=== PATIENT | female | born 1990 | race Caucasian/White ===

== ENCOUNTER 2017-08-01 05:06 | Inpatient (IN) | payer BC ==
[~2017-08-01 05:06] MED LIST: Lidocaine 1%/Sod Bicarbonate in NS 8.4% 1 ML Syringe IV PRN; Sodium Chloride 0.9% 10 ML Syringe FLUSH PRN
[2017-08-01] MEDS ORDERED: Citric Acid/Sodium Citrate Solution 30 ML Cup PO ONE (05:35)
[2017-08-01] MEDS ORDERED: ceFAZolin 2 GM in Premix Bag 1 BAG IV ONE (05:35)
[2017-08-01] MEDS ORDERED: Metoclopramide 10 MG/2 ML SDV IVPUSH ONE (05:35)
[2017-08-01] MEDS ORDERED: Oxytocin/Lactated Ringers 10 UNIT/1,000 ML BAG IV SCH (05:45)
[2017-08-01] MEDS: Lactated Ringers 1,000 ML IV SCH ×2 (06:16→06:17)
--- NOTE | 2017-08-01 06:36 | PCM.OPNOTE ---
- General Post-Op/Procedure Note Date of Surgery/Procedure: 08/01/17 Operative Procedure(s): Primary Low Transverse Findings: Normal appearance of the fallopian tubes, and ovaries. Slight arcuate appearance of the top of the uterus although cavity felt normal. Baby boy in breech presentation. Apgars of 8 & 9 and weight of 7 lbs 8 oz Pre Op Diagnosis: 39 weeks gestation. Breech presentation. Amniotic shelf Post-Op Diagnosis: Same Anesthesia Technique: Spinal Primary Surgeon: La Sepulveda Secondary Surgeon: Shelley London Anesthesia Provider: Cullen Gerber Pathology: Cord blood collected. Placenta discarded. Fluid Replacement, Intraop: 2,400 Output, Urine Amount: 75 EBL in mLs: 400 Complications: None Condition: Good Free Text/Narrative:: The risks, benefits, indications, potential complications, and alternatives were explained to the patient and informed consent obtained. After induction of anesthesia, the patient was placed in a supine position and then draped and prepped in the usual sterile manner. A Pfannenstiel incision was made and carried down through the subcutaneous tissue to the fascia. Fascial incision was made and extended transversely. The fascia was from the underlying rectus tissue superiorly and inferiorly. The peritoneum was identified and entered. Peritoneal incision was extended longitudinally. The utero-vesical peritoneal reflection was incised transversely and the bladder flap was bluntly freed from the lower uterine segment. A low transverse uterine incision was made sharply with a scalpel and extended bluntly in a cephalocaudad direction. A baby boy was delivered from a breech presentation with APGARS as above. After the umbilical cord was clamped and cut cord blood was obtained for evaluation. The placenta was removed intact and appeared normal. The uterus was exteriorized and cleared of clots. The uterine outline, tubes and ovaries appeared normal. The uterine incision was closed with running locked sutures of 0 Vicryl. Hemostasis was obtained with a second imbricating layer of 0 vicryl. The uterus was then placed back into the abdomen. The infracolic gutters were cleared of blood clots. The fascia was then reapproximated with running sutures of 0 Vicryl. The sucutaneous tissue was irrigated with sterile warm normal saline, hemostasis obtained with cautery. This layer was also closed with a running 0 vicryl. The skin was reapproximated with running Subcuticular 4-0 monocryl sutures. Instrument, sponge, and needle counts were correct prior the abdominal closure and at the conclusion of the case.
[2017-08-01] MEDS ORDERED: Ondansetron 4 MG/2 ML SDV ONE (06:49)
[2017-08-01] MEDS ORDERED: Ketorolac 30 MG/ML SDV ONE (06:49)
[2017-08-01] MEDS ORDERED: Oxytocin 10 Units/1 ML SDV ONE (06:49)
[2017-08-01] MEDS ORDERED: Morphine PF 10 MG/10 ML SDV ONE (06:55)
--- NOTE | 2017-08-01 07:08 | PCM.PREANE ---
Preanesthetic Assessment - Anesthesia/Transfusion/Family Hx Anesthesia History: Prior Anesthesia Without Reaction Family History of Anesthesia Reaction: No Transfusion History: No Prior Transfusion(s) Intubation History: Unknown - Review of Systems General: No Symptoms Pulmonary: No Symptoms Cardiovascular: No Symptoms Gastrointestinal: No Symptoms Neurological: No Symptoms Other: Reports: None - Physical Assessment NPO Status Date: 08/01/17 NPO Status Time: 00:00 Pulse: 70 O2 Sat by Pulse Oximetry: 98 Respiratory Rate: 16 Blood Pressure: 129/80 Temperature: 98.1 F Vital Signs: Last Vital Signs Temp 98.1 F 08/01/17 05:43 Pulse 70 08/01/17 05:43 Resp 16 08/01/17 05:43 BP 129/80 08/01/17 05:43 Pulse Ox 98 08/01/17 05:43 Height: 1.73 m Weight: 81.647 kg ASA Class: 2 Mental Status: Alert & Oriented x3 Airway Class: Mallampati = 2 Dentition: Reports: Normal Dentition Thyro-Mental Finger Breadths: 3 Mouth Opening Finger Breadths: 3 ROM/Head Extension: Full Lungs: Clear to Auscultation, Normal Respiratory Effort Cardiovascular: Regular Rate, Regular Rhythm - Lab Values: Laboratory Last Values WBC 6.37 K/mm3 (3.98-10.04) 08/01/17 05:55 RBC 3.26 M/mm3 (3.98-5.22) L 08/01/17 05:55 Hgb 10.0 gm/L (11.2-15.7) L 08/01/17 05:55 Hct 29.8 % (34.1-44.9) L 08/01/17 05:55 MCV 91.4 fl (79.4-94.8) 08/01/17 05:55 MCH 30.7 pg (25.6-32.2) 08/01/17 05:55 MCHC 33.6 g/dl (32.2-35.5) 08/01/17 05:55 RDW Std Deviation 39.5 fL (36.4-46.3) 08/01/17 05:55 Plt Count 270 K/mm3 (182-369) 08/01/17 05:55 MPV 9.3 fl (9.4-12.3) L 08/01/17 05:55 Blood Type A POSITIVE 08/01/17 05:55 Gel Antibody Screen Negative 08/01/17 05:55 - Allergies Allergies/Adverse Reactions: Allergies Allergy/AdvReac Type Severity Reaction Status Date / Time latex Allergy Mild skin Verified 08/01/17 05:53 irritation - Blood Blood Available: Yes Product(s) Available: PRBC - Anesthesia Plan Pre-Op Medication Ordered: None - Acknowledgements Anesthesia Type Planned: Spinal Pt an Appropriate Candidate for the Planned Anesthesia: Yes Alternatives and Risks of Anesthesia Discussed w Pt/Guardian: Yes Pt/Guardian Understands and Agrees with Anesthesia Plan: Yes 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 USE Smoking Status *Q: Never Smoker Second Hand Smoke Exposure: No Recreational Drug Use History: No - CURRENT (IN HOUSE) MEDS Current Meds: Current Medications Lactated Ringer's (Ringers, Lactated) 1,000 mls @ 125 mls/hr IV ASDIRECTED [facility] Last Admin: 08/01/17 06:17 Dose: 999 mls/hr Oxytocin/Lactated Ringer's (Pitocin In Lr 10 Units/1,000 Ml) 10 unit in 1,000 mls @ 100 mls/hr IV ASDIRECTED [facility] Lidocaine/Sodium Bicarbonate (Buffered Lidocaine 1% In Ns 8.4%) 0.25 ml IV ONETIME PRN PRN Reason: Prior to IV Start Sodium Chloride (Saline Flush) 10 ml FLUSH ASDIRECTED PRN PRN Reason: Keep Vein Open Discontinued Medications Citric Acid/Sodium Citrate (Bicitra Solution) 30 ml PO ONETIME ONE Stop: 08/01/17 05:36 Last Admin: 08/01/17 06:57 Dose: 30 ml Cefazolin Sodium/Dextrose 2 gm (/ Premix) 50 mls @ 100 mls/hr IV ONETIME ONE Stop: 08/01/17 06:04 Ketorolac Tromethamine (Toradol) Confirm Administered Dose 30 mg .ROUTE .STK- MED ONE Stop: 08/01/17 06:50 Metoclopramide HCl (Reglan) 10 mg IVPUSH ONETIME ONE Stop: 08/01/17 05:36 Last Admin: 08/01/17 06:57 Dose: 10 mg Morphine Sulfate (Duramorph Pf) Confirm Administered Dose 10 mg .ROUTE .STK-MED ONE Stop: 10/19/17 06:56 Ondansetron HCl (Zofran) Confirm Administered Dose 4 mg .ROUTE .STK-MED ONE Stop: 08/01/17 06:50 Oxytocin (Pitocin) Confirm Administered Dose 20 unit .ROUTE .STK-MED ONE Stop: 08/01/17 06:50
[2017-08-01] MEDS ORDERED: Phenylephrine 1% 10 MG/ML SDV ONE (07:31)
[2017-08-01] MEDS ORDERED: Lactated Ringers 1,000 ML ONE ×2 (07:53→08:01)
[2017-08-01] MEDS ORDERED: fentaNYL 100 MCG/2 ML SDV IVPUSH PRN (08:29)
[2017-08-01] MEDS ORDERED: Meperidine PF 50 MG/ML Syringe IVPUSH PRN (08:29)
[2017-08-01] MEDS ORDERED: ePHEDrine 50 MG/ML SDV IVPUSH PRN (08:29)
[2017-08-01] MEDS ORDERED: Ondansetron 4 MG/2 ML SDV IVPUSH PRN (08:29)
--- NOTE | 2017-08-01 08:33 | PCM.POSTAN ---
POST ANESTHESIA ASSESSMENT - MENTAL STATUS Mental Status: Alert, Oriented - VITAL SIGNS Pulse Rate: 72 SaO2: 97 Resp Rate: 21 Blood Pressure: 120/64 Temperature: 98 F - RESPIRATORY Respiratory Status: Respiratory Rate WNL, Airway Patent, O2 Saturation Stable - CARDIOVASCULAR CV Status: Pulse Rate WNL, Blood Pressure Stable - GASTROINTESTINAL GI Status: No Symptoms - PAIN Pain Score: 0 - POST OP HYDRATION Hydration Status: Adequate & Stable
[2017-08-01] MEDS ORDERED: Ondansetron 4 MG/2 ML SDV IV PRN (09:58)
[2017-08-01] MEDS ORDERED: diphenhydrAMINE 50 MG/ML SDV IVPUSH PRN (09:58)
[2017-08-01] MEDS ORDERED: Lanolin 100% Cream 7 GM Tube TOP PRN (09:58)
[2017-08-01] MEDS ORDERED: Docusate Sodium 100 MG Cap PO PRN (09:58)
[2017-08-01] MEDS ORDERED: Dextrose 5%-Lactated Ringers 1,000 ML IV SCH (09:58)
[2017-08-01] MEDS ORDERED: Ibuprofen 600 MG Tab PO PRN (09:58)
[2017-08-01] MEDS: diphenhydrAMINE 50 MG/ML SDV IVPUSH PRN ×2 (11:19→18:30)
[2017-08-01] MEDS: Ketorolac 30 MG/ML SDV IVPUSH SCH ×2 (15:28→20:58)
[2017-08-02] MEDS: Ketorolac 30 MG/ML SDV IVPUSH SCH (02:36)
--- NOTE | 2017-08-02 08:53 | PCM.PNPP ---
- General Info Date of Service: 08/02/17 Functional Status: Reports: Pain Controlled - Review of Systems General: Reports: No Symptoms HEENT: Reports: No Symptoms Pulmonary: Reports: No Symptoms Cardiovascular: Reports: No Symptoms Gastrointestinal: Reports: No Symptoms Genitourinary: Reports: No Symptoms Musculoskeletal: Reports: No Symptoms Skin: Reports: No Symptoms Neurological: Reports: No Symptoms Psychiatric: Reports: No Symptoms - General Info Date of Service: 08/02/17 - Patient Data Vital Signs - Most Recent: Last Vital Signs Temp 36.7 C 08/02/17 02:37 Pulse 74 08/02/17 02:37 Resp 16 08/02/17 06:53 BP 117/62 08/02/17 02:37 Pulse Ox 98 08/02/17 06:53 Weight - Most Recent: 81.647 kg I&O - Last 24 Hours: Intake & Output 08/01/17 08/02/17 08/02/17 22:59 06:59 14:59 Intake Total 2000 Output Total 950 2000 Balance 1050 -2000 Lab Results - Last 24 Hours: Laboratory Results - last 24 hr 08/02/17 Range/Units 06:40 WBC 8.18 (3.98-10.04) K/mm3 RBC 3.27 L (3.98-5.22) M/mm3 Hgb 10.1 L (11.2-15.7) gm/L Hct 29.9 L (34.1-44.9) % MCV 91.4 (79.4-94.8) fl MCH 30.9 (25.6-32.2) pg MCHC 33.8 (32.2-35.5) g/dl RDW Std Deviation 40.1 (36.4-46.3) fL Plt Count 215 (182-369) K/mm3 MPV 9.5 (9.4-12.3) fl Med Orders - Current: Current Medications Diphenhydramine HCl (Benadryl) 25 mg IVPUSH Q6H PRN PRN Reason: pruritis Last Admin: 08/01/17 18:30 Dose: 25 mg Diphenhydramine HCl (Benadryl) 25 mg IVPUSH Q6H PRN PRN Reason: Itching or Nausea Docusate Sodium (Colace) 100 mg PO Q12H PRN PRN Reason: Constipation Emollient Ointment (Lansinoh Hpa) 0 gm TOP ASDIRECTED PRN PRN Reason: Sore Nipples Ephedrine Sulfate (Ephedrine Sulfate) 5 mg IVPUSH ASDIRECTED PRN PRN Reason: Hypotension Fentanyl (Sublimaze) 50 mcg IVPUSH Q5M PRN PRN Reason: Pain Ibuprofen (Motrin) 600 mg PO Q6H PRN PRN Reason: mild pain or fever Meperidine HCl (Demerol) 12.5 mg IVPUSH ONETIME PRN PRN Reason: shivering Ondansetron HCl (Zofran) 4 mg IVPUSH ONETIME PRN PRN Reason: Nausea/Vomiting Ondansetron HCl (Zofran) 4 mg IV Q8H PRN PRN Reason: Nausea/Vomiting Oxycodone/Acetaminophen (Percocet 325-5 Mg) 2 tab PO Q4H PRN PRN Reason: Pain (moderate 4-6) Discontinued Medications Citric Acid/Sodium Citrate (Bicitra Solution) 30 ml PO ONETIME ONE Stop: 08/01/17 05:36 Last Admin: 08/01/17 06:57 Dose: 30 ml Lactated Ringer's (Ringers, Lactated) 1,000 mls @ 125 mls/hr IV ASDIRECTED [facility] Last Admin: 08/01/17 06:17 Dose: 999 mls/hr Cefazolin Sodium/Dextrose 2 gm (/ Premix) 50 mls @ 100 mls/hr IV ONETIME ONE Stop: 08/01/17 06:04 Last Admin: 08/01/17 10:07 Dose: Not Given Oxytocin/Lactated Ringer's (Pitocin In Lr 10 Units/1,000 Ml) 10 unit in 1,000 mls @ 100 mls/hr IV ASDIRECTED [facility] Lactated Ringer's (Ringers, Lactated) Confirm Administered Dose 1,000 mls @ as directed .ROUTE .[facility] ONE Stop: 08/01/17 07:54 Lactated Ringer's (Ringers, Lactated) Confirm Administered Dose 1,000 mls @ as directed .ROUTE .[facility] ONE Stop: 08/01/17 08:02 Dextrose/Lactated Ringer's (Dextrose 5%-Lactated Ringers) 1,000 mls @ 125 mls/ hr IV ASDIRECTED [facility] Stop: 08/01/17 17:57 Last Admin: 08/01/17 15:28 Dose: 125 mls/hr Ibuprofen (Motrin) 600 mg PO Q6H PRN PRN Reason: mild pain or fever Ketorolac Tromethamine (Toradol) Confirm Administered Dose 30 mg .ROUTE .STK- MED ONE Stop: 08/01/17 06:50 Ketorolac Tromethamine (Toradol) 30 mg IVPUSH Q6H [facility] Stop: 08/02/17 02:31 Last Admin: 08/02/17 02:36 Dose: 30 mg Lidocaine/Sodium Bicarbonate (Buffered Lidocaine 1% In Ns 8.4%) 0.25 ml IV ONETIME PRN PRN Reason: Prior to IV Start Metoclopramide HCl (Reglan) 10 mg IVPUSH ONETIME ONE Stop: 08/01/17 05:36 Last Admin: 08/01/17 06:57 Dose: 10 mg Morphine Sulfate (Duramorph Pf) Confirm Administered Dose 10 mg .ROUTE .STK-MED ONE Stop: 08/01/17 06:56 Ondansetron HCl (Zofran) Confirm Administered Dose 4 mg .ROUTE .STK-MED ONE Stop: 08/01/17 06:50 Oxytocin (Pitocin) Confirm Administered Dose 20 unit .ROUTE .STK-MED ONE Stop: 08/01/17 06:50 Phenylephrine HCl (Dmitriy-Synephrine) Confirm Administered Dose 10 mg .ROUTE .STK- MED ONE Stop: 08/01/17 07:32 Sodium Chloride (Saline Flush) 10 ml FLUSH ASDIRECTED PRN PRN Reason: Keep Vein Open - Interaction Infant Disposition, : [place] to Nursery Support Person: - Recovery Exam Fundal Tone: Firm Fundal Level: 1 Fingerbreadths Below Umbilicus Fundal Placement: Midline Lochia Amount: Small Lochia Color: Rubra/Red Perineum Description: Intact, Minimal Bruising/Swelling Episiotomy/Laceration: None Bladder Status: Voiding Urinary Elimination: Indwelling Catheter - Exam General: Alert, Oriented HEENT: Pupils Equal Neck: Supple Lungs: Clear to Auscultation, Normal Respiratory Effort Cardiovascular: Regular Rate, Regular Rhythm GI/Abdominal Exam: Normal Bowel Sounds, Soft, Non-Tender, No Organomegaly, No Distention, No Abnormal Bruit, No Mass, Pelvis Stable Extremities: Normal Inspection, Normal Range of Motion, Non-Tender, No Pedal Edema, Normal Capillary Refill Skin: Warm, Dry, Intact Wound/Incisions: Healing Well Neurological: No New Focal Deficit Psy/Mental Status: Alert, Normal Affect, Normal Mood - Problem List Review Problem List Initiated/Reviewed/Updated: Yes - Assessment Assessment:: 26 week s/p RCS. Doing great. Routine cares. Probable discharge tomorrow or Saturday.
--- NOTE | 2017-08-02 09:47 | PCM48HPAN ---
Post Anesthesia Note - EVALUATION WITHIN 48HRS OF ANESTHETIC Vital Signs in Normal Range: Yes Patient Participated in Evaluation: Yes Respiratory Function Stable: Yes Airway Patent: Yes Cardiovascular Function Stable: Yes Hydration Status Stable: Yes Pain Control Satisfactory: Yes Nausea and Vomiting Control Satisfactory: Yes Mental Status Recovered: Yes - COMMENTS/OBSERVATIONS Free Text/Narrative:: Patient c/o headache rated #4/10. Nurse notified.
[2017-08-02] MEDS: Acetaminophen/oxyCODONE 325-5 MG Tab PO PRN ×3 (09:59→23:55)
[2017-08-02] MEDS: Ibuprofen 600 MG Tab PO PRN ×2 (12:57→19:44)
[2017-08-03] MEDS: Acetaminophen/oxyCODONE 325-5 MG Tab PO PRN ×3 (04:37→16:53)
[2017-08-03] MEDS: Ibuprofen 600 MG Tab PO PRN ×2 (08:06→14:29)
[2017-08-03] MEDS ORDERED: Sodium Chloride 0.9% 10 ML Syringe FLUSH PRN (20:53)
[2017-08-03] MEDS ORDERED: Lactated Ringers 1,000 ML IV ONE (20:54)
[2017-08-03] MEDS ORDERED: Ketorolac 30 MG/ML SDV IVPUSH ONE (21:00)
[2017-08-03] MEDS ORDERED: HYDROmorphone 1 MG/ML Syringe IVPUSH PRN (21:11)
[2017-08-03] MEDS ORDERED: Lactated Ringers 1,000 ML IV SCH (22:00)
--- NOTE | 2017-08-04 07:56 | PCM.DCSUM1 ---
Discharge Summary - Hospital Course Brief History: Admitted 08.01 for repeat . Increased headache until 08.04 when blood patch done. - Discharge Data Discharge Date: 08/04/17 Discharge Disposition: Home, Self-Care 01 Condition: Good - Patient Summary/Data Operative Procedure(s) Performed: Primary Low Transverse , blood patch Complications: spinal headache Hospital Course: See op note Uncomplicated postop course other than spinal headache with blood patch - Patient Instructions Diet: Usual Diet as Tolerated Activity: No Strenuous Activities Driving: Do Not Drive Notify Provider of: Fever, Increased Pain, Swelling and Redness, Drainage, Nausea and/or Vomiting - Discharge Plan Patient Handouts: Care After Delivery Referrals: La Sepulveda MD [Primary Care Provider] - (2 weeks) - Discharge Summary/Plan Comment DC Time >30 min.: No - General Info Date of Service: 08/04/17 Functional Status: Reports: Pain Controlled - Review of Systems General: Reports: No Symptoms HEENT: Reports: Headaches Pulmonary: Reports: No Symptoms Cardiovascular: Reports: No Symptoms Gastrointestinal: Reports: No Symptoms Genitourinary: Reports: No Symptoms Musculoskeletal: Reports: No Symptoms Skin: Reports: No Symptoms Neurological: Reports: No Symptoms Psychiatric: Reports: No Symptoms - Patient Data Vitals - Most Recent: Last Vital Signs Temp 36.2 C 08/03/17 20:30 Pulse 70 08/03/17 20:30 Resp 16 08/03/17 20:30 BP 129/80 08/03/17 20:30 Pulse Ox 97 08/03/17 20:30 Weight - Most Recent: 81.647 kg I&O - Last 24 hours: Intake & Output 08/03/17 08/04/17 08/04/17 22:59 06:59 14:59 Intake Total 440 Balance 440 Med Orders - Current: Current Medications Diphenhydramine HCl (Benadryl) 25 mg IVPUSH Q6H PRN PRN Reason: pruritis Last Admin: 08/01/17 18:30 Dose: 25 mg Diphenhydramine HCl (Benadryl) 25 mg IVPUSH Q6H PRN PRN Reason: Itching or Nausea Docusate Sodium (Colace) 100 mg PO Q12H PRN PRN Reason: Constipation Emollient Ointment (Lansinoh Hpa) 0 gm TOP ASDIRECTED PRN PRN Reason: Sore Nipples Ephedrine Sulfate (Ephedrine Sulfate) 5 mg IVPUSH ASDIRECTED PRN PRN Reason: Hypotension Fentanyl (Sublimaze) 50 mcg IVPUSH Q5M PRN PRN Reason: Pain Hydromorphone HCl (Dilaudid) 1 mg IVPUSH ONETIME PRN PRN Reason: Severe Headache Pain Lactated Ringer's (Ringers, Lactated) 1,000 mls @ 40 mls/hr IV ASDIRECTED [facility] Last Admin: 08/03/17 22:45 Dose: 40 mls/hr Ibuprofen (Motrin) 600 mg PO Q6H PRN PRN Reason: mild pain or fever Last Admin: 08/03/17 14:29 Dose: 600 mg Meperidine HCl (Demerol) 12.5 mg IVPUSH ONETIME PRN PRN Reason: shivering Ondansetron HCl (Zofran) 4 mg IVPUSH ONETIME PRN PRN Reason: Nausea/Vomiting Ondansetron HCl (Zofran) 4 mg IV Q8H PRN PRN Reason: Nausea/Vomiting Oxycodone/Acetaminophen (Percocet 325-5 Mg) 2 tab PO Q4H PRN PRN Reason: Pain (moderate 4-6) Last Admin: 08/03/17 16:53 Dose: 2 tab Sodium Chloride (Saline Flush) 10 ml FLUSH ASDIRECTED PRN PRN Reason: Keep Vein Open Discontinued Medications Citric Acid/Sodium Citrate (Bicitra Solution) 30 ml PO ONETIME ONE Stop: 08/01/17 05:36 Last Admin: 08/01/17 06:57 Dose: 30 ml Lactated Ringer's (Ringers, Lactated) 1,000 mls @ 125 mls/hr IV ASDIRECTED [facility] Last Admin: 08/01/17 06:17 Dose: 999 mls/hr Cefazolin Sodium/Dextrose 2 gm (/ Premix) 50 mls @ 100 mls/hr IV ONETIME ONE Stop: 08/01/17 06:04 Last Admin: 08/01/17 10:07 Dose: Not Given Oxytocin/Lactated Ringer's (Pitocin In Lr 10 Units/1,000 Ml) 10 unit in 1,000 mls @ 100 mls/hr IV ASDIRECTED [facility] Lactated Ringer's (Ringers, Lactated) Confirm Administered Dose 1,000 mls @ as directed .ROUTE .STK-MED ONE Stop: 08/01/17 07:54 Lactated Ringer's (Ringers, Lactated) Confirm Administered Dose 1,000 mls @ as directed .ROUTE .STK-MED ONE Stop: 08/01/17 08:02 Dextrose/Lactated Ringer's (Dextrose 5%-Lactated Ringers) 1,000 mls @ 125 mls/ hr IV ASDIRECTED [facility] Stop: 08/01/17 17:57 Last Admin: 08/01/17 15:28 Dose: 125 mls/hr Lactated Ringer's (Ringers, Lactated) 1,000 mls @ 999 mls/hr IV .[facility] ONE Stop: 08/03/17 21:54 Last Admin: 08/03/17 21:45 Dose: 999 mls/hr Ibuprofen (Motrin) 600 mg PO Q6H PRN PRN Reason: mild pain or fever Ketorolac Tromethamine (Toradol) Confirm Administered Dose 30 mg .ROUTE .STK- MED ONE Stop: 08/01/17 06:50 Ketorolac Tromethamine (Toradol) 30 mg IVPUSH Q6H [facility] Stop: 08/02/17 02:31 Last Admin: 08/02/17 02:36 Dose: 30 mg Ketorolac Tromethamine (Toradol) 30 mg IVPUSH ONETIME ONE Stop: 08/03/17 21:01 Last Admin: 08/03/17 21:41 Dose: 30 mg Lidocaine/Sodium Bicarbonate (Buffered Lidocaine 1% In Ns 8.4%) 0.25 ml IV ONETIME PRN PRN Reason: Prior to IV Start Metoclopramide HCl (Reglan) 10 mg IVPUSH ONETIME ONE Stop: 08/01/17 05:36 Last Admin: 08/01/17 06:57 Dose: 10 mg Morphine Sulfate (Duramorph Pf) Confirm Administered Dose 10 mg .ROUTE .STK-MED ONE Stop: 08/01/17 06:56 Ondansetron HCl (Zofran) Confirm Administered Dose 4 mg .ROUTE .STK-MED ONE Stop: 08/01/17 06:50 Oxytocin (Pitocin) Confirm Administered Dose 20 unit .ROUTE .STK-MED ONE Stop: 08/01/17 06:50 Phenylephrine HCl (Dmitriy-Synephrine) Confirm Administered Dose 10 mg .ROUTE .[employer] ONE Stop: 08/01/17 07:32 Sodium Chloride (Saline Flush) 10 ml FLUSH ASDIRECTED PRN PRN Reason: Keep Vein Open - Exam General: Reports: Alert, Oriented HEENT: Reports: Pupils Equal, Pupils Reactive, EOMI, Mucous Membr. Moist/[place] Neck: Reports: Supple Lungs: Reports: Clear to Auscultation, Normal Respiratory Effort Cardiovascular: Reports: Regular Rate, Regular Rhythm GI/Abdominal Exam: Normal Bowel Sounds, Soft, Non-Tender, No Organomegaly, No Distention, No Abnormal Bruit, No Mass, Pelvis Stable Back Exam: Reports: Normal Inspection, Full Range of Motion Extremities: Normal Inspection, Normal Range of Motion, Non-Tender, No Pedal Edema, Normal Capillary Refill Skin: Reports: Warm, Dry, Intact Wound/Incisions: Reports: Healing Well Neurological: Reports: No New Focal Deficit Psy/Mental Status: Reports: Alert, Normal Affect, Normal Mood *Q Meaningful Use (DIS) - VTE *Q VTE Criteria *Q: - Stroke *Q Stroke Criteria *Q: - AMI *Q AMI Criteria *Q:
--- NOTE | 2017-08-04 09:10 | PCM.SN ---
- Free Text/Narrative Note: Start: 0820 Stop: 0900 Anesthesia called regarding potential spinal headache that presents with typical symptom of being positional. Risk/Benefits discussed with patient regarding blood patch, and consent obtained. Vitals: 99.4 20 88 98% 133/82 Blood Patch Procedure: Patient sitting up for Procedure. L3-L4 location noted with Betadine times 3 swabs, and sterile gloves, drape, and masks used. Sterile technique noted with site localized with 3ml's of 1% lidocaine. 17g tuohy advanced to level of loss of resistance with air. 25ml's of autologous blood injected slowly with slight pressure noted per patient. Pressure dressing applied, and patient instructed to lay flat for one hour. Patient encouraged upon discharge to drink caffeinated beverages, to limit activities, and notify RESIDENT PHYSICIAN IN RADIOLOGY if symptoms worsen or do not resolve. Thank you, Radha Villagran [employer] [employer] HAND
[2017-08-04] MEDS: Acetaminophen/oxyCODONE 325-5 MG Tab PO PRN (11:56)
== END 2017-08-04 12:54 | disposition home or self-care (01) | DRG 540 ==
LOC: JD.OB 05:06
PROVIDERS: ADMIT Obstetrics & Gynecology; ATTEND Obstetrics & Gynecology
PROC: 10D00Z1 Extraction of Products of Conception, Low, Open Approach (ICD-10-PCS; principal; 2017-08-01)
PROC: 3E0R3GC Introduction of Other Therapeutic Substance into Spinal Canal, Percutaneous Approach (ICD-10-PCS; 2017-08-04)
DX: O32.1XX0 Maternal care for breech presentation, not applicable or unspecified (principal); O41.8X30 Other specified disorders of amniotic fluid and membranes, third trimester, not applicable or unspecified; Z3A.39 39 weeks gestation of pregnancy; Z37.1 Single stillbirth; O89.4 Spinal and epidural anesthesia-induced headache during the puerperium; Z91.040 Latex allergy status
CPT/HCPCS: 01961; 36415; 62273; 85027; 86850; 86900; 86901; A9270-GY; J1200; J1885; J2270; J2370; J2405; J2590; J2765; J7042; J7120

== ENCOUNTER 2018-11-20 04:54 | Inpatient (IN) | payer BC, OTHER ==
[~2018-11-20 04:54] MED LIST changes: +Citric Acid/Sodium Citrate Solution 30 ML Cup PO ONE; +Lactated Ringers 1,000 ML IV SCH; -Lidocaine 1%/Sod Bicarbonate in NS 8.4% 1 ML Syringe IV PRN; +Metoclopramide 10 MG/2 ML SDV IVPUSH ONE; +Nalbuphine 20 MG/ML 1 ML Syringe IVPUSH PRN; +ceFAZolin 2 GM in Premix Bag 1 BAG IV ONE
--- NOTE | 2018-11-20 06:23 | PCM.PRNOTE ---
- Free Text/Narrative Note: PROCEDURE NOTE Procedure Date: 11/20/2018 Pre-operative Diagnosis: 1. at 37 1/7 wks 2. Breech Presentation 3. Growth restriction 4. History of prior for breech Post-operative Diagnosis: 1. As above s/p unsuccessful external cephalic version Anesthesia: None Description of Operation/Procedure: The risks, benefits, indications, potential complications, and alternatives were explained to the patient and informed consent obtained. Patient was placed in the supine position. Ultrasound was used to confirm complete breech presentation and appropriate MARTINEZ. Terbutaline 0.25 mg subcutaneous was given. Hands were placed on the patient's abdomen. The breech was elevated out of the pelvis while counterclockwise traction was applied to the head. No movement of fetus noted. An attempt was then made to move baby in a clockwise fashion. This too was unsuccessful. At this point procedure was abandoned Complications: The patient tolerated the procedure well and no complications were noted. Plan: Proceed with RLTCS
[2018-11-20] MEDS ORDERED: Terbutaline 1 MG/ML SDV SUBCUT ONE (07:08)
[2018-11-20] MEDS ORDERED: Terbutaline 1 MG/ML SDV ONE (07:10)
[2018-11-20] MEDS ORDERED: Citric Acid/Sodium Citrate Solution 30 ML Cup ONE (07:10)
[2018-11-20] MEDS ORDERED: Metoclopramide 10 MG/2 ML SDV ONE (07:10)
[2018-11-20] MEDS ORDERED: Morphine PF 1 MG/ML Amp ONE (07:29)
[2018-11-20] MEDS ORDERED: Oxytocin 10 Units/1 ML SDV ONE (07:32)
[2018-11-20] MEDS ORDERED: Ondansetron 4 MG/2 ML SDV ONE (07:35)
[2018-11-20] MEDS ORDERED: ceFAZolin 1 GM Vial ONE (07:35)
[2018-11-20] MEDS ORDERED: Lactated Ringers 1,000 ML ONE (07:38)
--- NOTE | 2018-11-20 07:50 | PCM.PREANE ---
Preanesthetic Assessment - Procedure Proposed Procedure: C Section - Anesthesia/Transfusion/Family Hx Anesthesia History: Prior Anesthesia Without Reaction (patient stated her left eye swelled up after her last c section with a spinal but was just given benadryl for it and did well.) Other Type of Anesthesia Reaction Comment: face swelling Family History of Anesthesia Reaction: No Transfusion History: No Prior Transfusion(s) Intubation History: Unknown - Review of Systems General: No Symptoms Pulmonary: No Symptoms Cardiovascular: No Symptoms Gastrointestinal: No Symptoms Neurological: No Symptoms Other: Reports: None - Physical Assessment NPO Status Date: 11/19/18 NPO Status Time: 18:00 Pulse: 79 O2 Sat by Pulse Oximetry: 98 Respiratory Rate: 18 Blood Pressure: 132/91 Vital Signs: Last Vital Signs Temp 37.4 C 11/20/18 07:31 Pulse 79 11/20/18 05:26 Resp 18 11/20/18 07:31 BP 130/67 11/20/18 07:31 Pulse Ox 98 11/20/18 07:31 Height: 1.73 m Weight: 79.01 kg ASA Class: 2 Mental Status: Alert & Oriented x3 Airway Class: Mallampati = 1 Dentition: Reports: Normal Dentition Thyro-Mental Finger Breadths: 3 Mouth Opening Finger Breadths: 3 ROM/Head Extension: Full Lungs: Clear to Auscultation, Normal Respiratory Effort Cardiovascular: Regular Rate, Regular Rhythm - Lab Values: Laboratory Last Values WBC 8.23 K/mm3 (3.98-10.04) 11/20/18 05:35 RBC 3.97 M/mm3 (3.98-5.22) L 11/20/18 05:35 Hgb 11.8 gm/L (11.2-15.7) 11/20/18 05:35 Hct 35.2 % (34.1-44.9) 11/20/18 05:35 MCV 88.7 fl (79.4-94.8) 11/20/18 05:35 MCH 29.7 pg (25.6-32.2) 11/20/18 05:35 MCHC 33.5 g/dl (32.2-35.5) 11/20/18 05:35 RDW Std Deviation 39.6 fL (36.4-46.3) 11/20/18 05:35 Plt Count 330 K/mm3 (182-369) 11/20/18 05:35 MPV 9.3 fl (9.4-12.3) L 11/20/18 05:35 Neut % (Auto) 66.3 % (34.0-71.1) 11/20/18 05:35 Lymph % (Auto) 24.4 % (19.3-51.7) 11/20/18 05:35 [place] % (Auto) 8.0 % (4.7-12.5) 11/20/18 05:35 Eos % (Auto) 0.7 (0.7-5.8) 11/20/18 05:35 Baso % (Auto) 0.2 % (0.1-1.2) 11/20/18 05:35 Neut # (Auto) 5.45 K/mm3 (1.56-6.13) 11/20/18 05:35 Lymph # (Auto) 2.01 K/mm3 (1.18-3.74) 11/20/18 05:35 [place] # (Auto) 0.66 K/mm3 (0.24-0.36) H 11/20/18 05:35 Eos # (Auto) 0.06 K/mm3 (0.04-0.36) 11/20/18 05:35 Baso # (Auto) 0.02 K/mm3 (0.01-0.08) 11/20/18 05:35 - Allergies Allergies/Adverse Reactions: Allergies Allergy/AdvReac Type Severity Reaction Status Date / Time latex Allergy Mild skin Verified 08/01/17 05:53 irritation - Blood Blood Available: No Product(s) Available: None - Anesthesia Plan Pre-Op Medication Ordered: None - Acknowledgements Anesthesia Type Planned: Spinal (with duramorph) Pt an Appropriate Candidate for the Planned Anesthesia: Yes Alternatives and Risks of Anesthesia Discussed w Pt/Guardian: Yes Pt/Guardian Understands and Agrees with Anesthesia Plan: Yes PreAnesthesia Questionnaire HEENT History: Reports: Impaired Vision, Other (See Below) Other HEENT History: wears glasses Respiratory History: Reports: Other (See Below) Other Respiratory History: hay fever(seasonal) CARE CLINICIAN History: Reports: - Infectious Disease History Infectious Disease History: Reports: Chicken Pox - SUBSTANCE USE Smoking Status *Q: Never Smoker Second Hand Smoke Exposure: No Recreational Drug Use History: No - CURRENT (IN HOUSE) MEDS Current Meds: Current Medications Lactated Ringer's (Ringers, Lactated) 1,000 mls @ 125 mls/hr IV ASDIRECTED DANIEL Last Admin: 11/20/18 05:33 Dose: 125 mls/hr Nalbuphine HCl (Nubain) 10 mg IVPUSH Q2H PRN PRN Reason: pain Sodium Chloride (Saline Flush) 10 ml FLUSH ASDIRECTED PRN PRN Reason: Keep Vein Open Discontinued Medications Cefazolin Sodium (Ancef) Confirm Administered Dose 2 gm .ROUTE .STK-MED ONE Stop: 11/20/18 07:36 Citric Acid/Sodium Citrate (Bicitra Solution) 30 ml PO ONETIME ONE Stop: 11/20/18 04:46 Last Admin: 11/20/18 07:14 Dose: 30 ml Citric Acid/Sodium Citrate (Bicitra Solution) Confirm Administered Dose 30 ml .ROUTE .STK-MED ONE Stop: 11/20/18 07:11 Cefazolin Sodium/Dextrose 2 gm (/ Premix) 50 mls @ 100 mls/hr IV ONETIME ONE Stop: 11/20/18 05:14 Lactated Ringer's (Ringers, Lactated) Confirm Administered Dose 1,000 mls @ as directed .ROUTE .STK-MED ONE Stop: 11/20/18 07:39 Metoclopramide HCl (Reglan) 10 mg IVPUSH ONETIME ONE Stop: 11/20/18 04:46 Last Admin: 11/20/18 07:15 Dose: 10 mg Metoclopramide HCl (Reglan) Confirm Administered Dose 10 mg .ROUTE .STK-MED ONE Stop: 11/20/18 07:11 Morphine Sulfate (Duramorph Pf) Confirm Administered Dose 1 mg .ROUTE .STK-MED ONE Stop: 11/20/18 07:30 Ondansetron HCl (Zofran) Confirm Administered Dose 4 mg .ROUTE .STK-MED ONE Stop: 11/20/18 07:36 Oxytocin (Pitocin) Confirm Administered Dose 20 unit .ROUTE .STK-MED ONE Stop: 11/20/18 07:33 Terbutaline Sulfate (Brethine) 0.25 mg SUBCUT ONETIME ONE Stop: 11/20/18 07:09 Last Admin: 11/20/18 07:39 Dose: 0.25 mg Terbutaline Sulfate (Brethine) Confirm Administered Dose 1 mg .ROUTE .[facility] ONE Stop: 11/20/18 07:11
[2018-11-20] MEDS ORDERED: Ketorolac 30 MG/ML SDV ONE (08:37)
[2018-11-20] MEDS ORDERED: Meperidine PF 50 MG/ML Syringe ONE (08:43)
--- NOTE | 2018-11-20 09:00 | PCM.OPNOTE ---
- General Post-Op/Procedure Note Date of Surgery/Procedure: 11/20/18 Operative Procedure(s): Repeat Findings: Minimal scar tissue between the rectus and fascia. Minimal scar tissue between the bladder and AHSAN. Baby Boy in a breech presentation with APGARS of 8 & 9 and weight of 5 lbs 13 oz. Approximate 4 cm projection/septum noted at fundus of uterine cavity. This became less pronounced as uterus continued to involute. Pre Op Diagnosis: 37 weeks gestation. IUGR. Breech presentation. Hx of c- section Post-Op Diagnosis: Same Anesthesia Technique: Spinal Primary Surgeon: La Sepulveda Secondary Surgeon: Shelley London Anesthesia Provider: You Ren Reason [employer] Was Necessary: Speed, safety of procedure Pathology: Cord blood collected, placenta discarded Fluid Replacement, Intraop: 2,000 Output, Urine Amount: 200 EBL in mLs: 500 Complications: None Condition: Good Free Text/Narrative:: The risks, benefits, indications, potential complications, and alternatives were explained to the patient and informed consent obtained. After induction of anesthesia, the patient was placed in a supine position and then draped and prepped in the usual sterile manner. A Pfannenstiel incision was made and carried down through the subcutaneous tissue to the fascia. Fascial incision was made and extended transversely. The fascia was from the underlying rectus tissue superiorly and inferiorly. The peritoneum was identified and entered. Peritoneal incision was extended longitudinally. The utero-vesical peritoneal reflection was incised transversely and the bladder flap was bluntly freed from the lower uterine segment. A low transverse uterine incision was made sharply with a scalpel and extended bluntly in a cephalocaudad direction. A baby boy was delivered from a breech presentation with APGARS as above. After the umbilical cord was clamped and cut cord blood was obtained for evaluation. The placenta was removed intact and appeared normal. The uterus was exteriorized and cleared of clots. Internal exam of uterus did show a septum/projection at midpoint of uterus that extended down about 4 cm or so. This became less prominent as the uterus began to involute. The uterine incision was closed with running locked sutures of 0 Vicryl. Hemostasis was obtained with a second imbricating layer of 0 vicryl. The uterus was then placed back into the abdomen. The infracolic gutters were cleared of blood clots. The fascia was then reapproximated with running sutures of 0 Vicryl. The sucutaneous tissue was irrigated with sterile warm normal saline, hemostasis obtained with cautery. This layer was closed with a running 0 vicryl. The skin was reapproximated with running Subcuticular 4-0 monocryl sutures. Instrument, sponge, and needle counts were correct prior the abdominal closure and at the conclusion of the case.
--- NOTE | 2018-11-20 09:07 | PCM.POSTAN ---
POST ANESTHESIA ASSESSMENT - MENTAL STATUS Mental Status: Alert, Oriented - VITAL SIGNS Pulse Rate: 75 SaO2: 99 Resp Rate: 19 Blood Pressure: 129/70 Temperature: 36.4 C - RESPIRATORY Respiratory Status: Respiratory Rate WNL, Airway Patent, O2 Saturation Stable, Supplemental Oxygen - CARDIOVASCULAR CV Status: Pulse Rate WNL, Blood Pressure Stable - GASTROINTESTINAL GI Status: No Symptoms - PAIN Pain Score: 0 - POST OP HYDRATION Hydration Status: Adequate & Stable
[2018-11-20] MEDS ORDERED: Ondansetron 4 MG/2 ML SDV IVPUSH PRN (09:08)
[2018-11-20] MEDS ORDERED: ePHEDrine 50 MG/ML SDV IVPUSH PRN (09:08)
[2018-11-20] MEDS ORDERED: diphenhydrAMINE 50 MG/ML SDV IVPUSH PRN (09:08)
[2018-11-20] MEDS ORDERED: fentaNYL 100 MCG/2 ML SDV IVPUSH PRN (09:08)
[2018-11-20] MEDS ORDERED: Meperidine 50 MG/ML Vial IVPUSH PRN (09:08)
[2018-11-20] MEDS ORDERED: Acetaminophen/oxyCODONE 325-5 MG Tab PO PRN (09:58)
[2018-11-20] MEDS ORDERED: Naloxone 0.4 MG/ML SDV IVPUSH PRN (09:58)
[2018-11-20] MEDS ORDERED: Docusate Sodium 100 MG Cap PO PRN (09:58)
[2018-11-20] MEDS ORDERED: Lanolin 100% Cream 7 GM Tube TOP PRN (09:58)
[2018-11-20] MEDS ORDERED: Ondansetron 4 MG/2 ML SDV IV PRN (09:58)
[2018-11-20] MEDS ORDERED: Dextrose 5%-Lactated Ringers 1,000 ML IV SCH (09:58)
[2018-11-20] MEDS: Ketorolac 30 MG/ML SDV IVPUSH SCH ×2 (14:46→20:12)
[2018-11-21] MEDS: Ketorolac 30 MG/ML SDV IVPUSH SCH (02:26)
--- NOTE | 2018-11-21 06:59 | PCM.PNPP ---
- General Info Date of Service: 11/21/18 Functional Status: Reports: Pain Controlled, Tolerating Diet, Ambulating, Urinating - Review of Systems General: Reports: No Symptoms Pulmonary: Reports: No Symptoms Cardiovascular: Reports: No Symptoms Gastrointestinal: Reports: Abdominal Pain (managed with medications ) Genitourinary: Reports: No Symptoms Musculoskeletal: Reports: No Symptoms Neurological: Reports: No Symptoms - Patient Data Vital Signs - Most Recent: Last Vital Signs Temp 36.2 C 11/21/18 02:00 Pulse 77 11/21/18 02:00 Resp 16 11/21/18 06:00 BP 125/62 11/21/18 02:00 Pulse Ox 100 11/21/18 06:00 Weight - Most Recent: 79.01 kg I&O - Last 24 Hours: Intake & Output 11/20/18 11/20/18 11/21/18 14:59 22:59 06:59 Intake Total 870 3120 Output Total 25 975 1350 Balance 845 2145 -1350 Lab Results - Last 24 Hours: Laboratory Results - last 24 hr 11/20/18 11/20/18 11/21/18 Range/Units 05:35 05:35 06:09 WBC 7.60 (3.98-10.04) K/mm3 RBC 3.26 L (3.98-5.22) M/mm3 Hgb 9.7 L (11.2-15.7) gm/L Hct 29.6 L (34.1-44.9) % MCV 90.8 (79.4-94.8) fl MCH 29.8 (25.6-32.2) pg MCHC 32.8 (32.2-35.5) g/dl RDW Std Deviation 41.4 (36.4-46.3) fL Plt Count 256 (182-369) K/mm3 MPV 9.0 L (9.4-12.3) fl RPR Non-reactive (NONREACTIVE) Blood Type A POSITIVE Gel Antibody Screen Negative Med Orders - Current: Current Medications Docusate Sodium (Colace) 100 mg PO Q12H PRN PRN Reason: Constipation Emollient Ointment (Lansinoh Hpa) 0 gm TOP ASDIRECTED PRN PRN Reason: Sore Nipples Ibuprofen (Motrin) 600 mg PO Q6H PRN PRN Reason: mild pain or fever Naloxone HCl (Narcan) 0.1 mg IVPUSH SEECOMMENT PRN PRN Reason: Respiratory Depression Ondansetron HCl (Zofran) 4 mg IV Q8H PRN PRN Reason: Nausea/Vomiting Oxycodone/Acetaminophen (Percocet 325-5 Mg) 2 tab PO Q4H PRN PRN Reason: Pain (moderate 4-6) Discontinued Medications Cefazolin Sodium (Ancef) Confirm Administered Dose 2 gm .ROUTE .STK-MED ONE Stop: 11/20/18 07:36 Citric Acid/Sodium Citrate (Bicitra Solution) 30 ml PO ONETIME ONE Stop: 11/20/18 04:46 Last Admin: 11/20/18 07:14 Dose: 30 ml Citric Acid/Sodium Citrate (Bicitra Solution) Confirm Administered Dose 30 ml .ROUTE .STK-MED ONE Stop: 11/20/18 07:11 Last Admin: 11/20/18 20:58 Dose: Not Given Diphenhydramine HCl (Benadryl) 25 mg IVPUSH Q6H PRN PRN Reason: Pruritis Stop: 11/20/18 12:00 Ephedrine Sulfate (Ephedrine Sulfate) 5 mg IVPUSH ASDIRECTED PRN PRN Reason: Hypotension Stop: 11/20/18 12:00 Fentanyl (Sublimaze) 50 mcg IVPUSH Q5M PRN PRN Reason: Pain Stop: 11/20/18 12:00 Cefazolin Sodium/Dextrose 2 gm (/ Premix) 50 mls @ 100 mls/hr IV ONETIME ONE Stop: 11/20/18 05:14 Lactated Ringer's (Ringers, Lactated) 1,000 mls @ 125 mls/hr IV ASDIRECTED [facility] Last Admin: 11/20/18 05:33 Dose: 125 mls/hr Lactated Ringer's (Ringers, Lactated) Confirm Administered Dose 1,000 mls @ as directed .ROUTE .STK-MED ONE Stop: 11/20/18 07:39 Dextrose/Lactated Ringer's (Dextrose 5%-Lactated Ringers) 1,000 mls @ 125 mls/ hr IV ASDIRECTED [facility] Stop: 11/20/18 17:57 Last Admin: 11/20/18 12:14 Dose: 125 mls/hr Ketorolac Tromethamine (Toradol) Confirm Administered Dose 30 mg .ROUTE .STK- MED ONE Stop: 11/20/18 08:38 Ketorolac Tromethamine (Toradol) 30 mg IVPUSH Q6H DANIEL Stop: 11/21/18 02:31 Last Admin: 11/21/18 02:26 Dose: 30 mg Meperidine HCl (Demerol) Confirm Administered Dose 50 mg .ROUTE .STK-MED ONE Stop: 11/20/18 08:44 Meperidine HCl (Meperidine) 12.5 mg IVPUSH ONETIME PRN PRN Reason: SHIVERING Stop: 11/20/18 12:00 Metoclopramide HCl (Reglan) 10 mg IVPUSH ONETIME ONE Stop: 11/20/18 04:46 Last Admin: 11/20/18 07:15 Dose: 10 mg Metoclopramide HCl (Reglan) Confirm Administered Dose 10 mg .ROUTE .STK-MED ONE Stop: 11/20/18 07:11 Last Admin: 11/20/18 20:58 Dose: Not Given Morphine Sulfate (Duramorph Pf) Confirm Administered Dose 1 mg .ROUTE .STK-MED ONE Stop: 11/20/18 07:30 Nalbuphine HCl (Nubain) 10 mg IVPUSH Q2H PRN PRN Reason: pain Ondansetron HCl (Zofran) Confirm Administered Dose 4 mg .ROUTE .STK-MED ONE Stop: 11/20/18 07:36 Ondansetron HCl (Zofran) 4 mg IVPUSH ONETIME PRN PRN Reason: Nausea/Vomiting Stop: 11/20/18 12:00 Oxytocin (Pitocin) Confirm Administered Dose 20 unit .ROUTE .STK-MED ONE Stop: 11/20/18 07:33 Sodium Chloride (Saline Flush) 10 ml FLUSH ASDIRECTED PRN PRN Reason: Keep Vein Open Terbutaline Sulfate (Brethine) 0.25 mg SUBCUT ONETIME ONE Stop: 11/20/18 07:09 Last Admin: 11/20/18 07:39 Dose: 0.25 mg Terbutaline Sulfate (Brethine) Confirm Administered Dose 1 mg .ROUTE .STK-MED ONE Stop: 11/20/18 07:11 Last Admin: 11/20/18 20:58 Dose: Not Given - Interaction Disposition, : in Room with Family Interaction: Holding Infant Feeding: Breastfed Infant; Nursed Well Support Person: - Recovery Exam Fundal Tone: Firm Fundal Level: 2 Fingerbreadths Below Umbilicus Fundal Placement: Midline Lochia Amount: Small Lochia Color: Rubra/Red Perineum Description: Intact, Minimal Bruising/Swelling Bladder Status: Voiding Urinary Elimination: Voided - Exam General: Alert, Oriented, Cooperative Lungs: Clear to Auscultation, Normal Respiratory Effort Cardiovascular: Regular Rate, Regular Rhythm GI/Abdominal Exam: Soft, Tender (appropriate post op ) Extremities: Normal Inspection Skin: Warm, Dry, Intact Wound/Incisions: Healing Well, No Drainage, Other (Slight brusing at right aspect of incision ) - Problem List & Annotations (1) 37 weeks gestation of SNOMED Code(s): 46830610 Code(s): Z3A.37 - 37 WEEKS GESTATION OF Status: Acute Current Visit: Yes (2) Breech presentation SNOMED Code(s): 6339262 Code(s): O32.1XX0 - MATERNAL CARE FOR BREECH PRESENTATION, UNSP Status: Acute Current Visit: Yes Qualifiers: Fetus number: single or unspecified fetus Qualified Code(s): O32.1XX0 - Maternal care for breech presentation, not applicable or unspecified (3) History of SNOMED Code(s): 385644914 Code(s): Z98.891 - HISTORY OF UTERINE SCAR FROM PREVIOUS SURGERY Status: Acute Current Visit: Yes (4) IUGR (intrauterine growth restriction) SNOMED Code(s): 43730855 Code(s): FJJ5932 - Status: Acute Current Visit: Yes - Problem List Review Problem List Initiated/Reviewed/Updated: Yes - My Orders Last 24 Hours: My Active Orders 11/20/18 09:58 Activity as Tolerated [RC] .Routine Antiembolic Devices [RC] PER UNIT ROUTINE Communication Order [RC] PER UNIT ROUTINE Intake and Output [RC] Q8HR May Shower [RC] PER UNIT ROUTINE Notify Provider Intake and Out [RC] ASDIRECTED RT Incentive Spirometry [RC] Q2HWA Vital Signs [RC] PER UNIT ROUTINE Acetaminophen/oxyCODONE [Percocet 325-5 MG] 2 tab PO Q4H PRN Docusate Sodium [Colace] 100 mg PO Q12H PRN Lanolin [Lansinoh HPA] See Dose Instructions TOP ASDIRECTED PRN Naloxone [Narcan] 0.1 mg IVPUSH SEECOMMENT PRN Ondansetron [Zofran] 4 mg IV Q8H PRN Assess Lochia [WOMSER] Per Unit Routine Assess Uterine Involution [WOMSER] Per Unit Routine Breast Pump [WOMSER] Per Unit Routine Heat Therapy [OM.PC] Per Unit Routine Peripheral IV Discontinue [OM.PC] Routine Sequential Compression Device [OM.PC] Per Unit Routine 11/20/18 Breakfast Regular Diet [DIET] 11/21/18 08:30 Ibuprofen [Motrin] 600 mg PO Q6H PRN - Assessment Assessment:: POD#2 from RLTCS at 37 1/7 wks for breech presentation / IUGR and history of prior - Plan Plan:: S/p RLTCS * Routine cares * Encourage breast feeding * Discharge home in 1-2 days
--- NOTE | 2018-11-21 09:17 | PCM48HPAN ---
Post Anesthesia Note - EVALUATION WITHIN 48HRS OF ANESTHETIC Vital Signs in Normal Range: Yes Patient Participated in Evaluation: Yes Respiratory Function Stable: Yes Airway Patent: Yes Cardiovascular Function Stable: Yes Hydration Status Stable: Yes Pain Control Satisfactory: Yes Nausea and Vomiting Control Satisfactory: Yes Mental Status Recovered: Yes
[2018-11-21] MEDS: Ibuprofen 600 MG Tab PO PRN ×2 (11:23→20:20)
[2018-11-22] MEDS: Ibuprofen 600 MG Tab PO PRN (06:21)
--- NOTE | 2018-11-22 09:47 | PCM.DCSUM1 ---
Discharge Summary - Hospital Course Free Text/Narrative:: [facility] Post-Op/Procedure Note Patient Name: AUGUSTUS FENG Date of : 89 Patient Status: Inpatient Attending Provider: La Sepulveda Date: 11/20/18 08:59 Initialization Date: 11/20/18 08:59 - General Post-Op/Procedure Note Date of Surgery/Procedure: 11/20/18 Operative Procedure(s): Repeat Findings: Minimal scar tissue between the rectus and fascia. Minimal scar tissue between the bladder and AHSAN. Baby Boy in a breech presentation with APGARS of 8 & 9 and weight of 5 lbs 13 oz. Approximate 4 cm projection/septum noted at fundus of uterine cavity. This became less pronounced as uterus continued to involute. Pre Op Diagnosis: 37 weeks gestation. IUGR. Breech presentation. Hx of c- section Post-Op Diagnosis: Same Anesthesia Technique: Spinal Primary Surgeon: La Sepulveda Secondary Surgeon: Shelley London Anesthesia Provider: You Ren Reason Irrigation Engineer Was Necessary: Speed, safety of procedure Pathology: Cord blood collected, placenta discarded Fluid Replacement, Intraop: 2,000 Output, Urine Amount: 200 EBL in mLs: 500 Complications: None Condition: Good Free Text/Narrative:: The risks, benefits, indications, potential complications, and alternatives were explained to the patient and informed consent obtained. After induction of anesthesia, the patient was placed in a supine position and then draped and prepped in the usual sterile manner. A Pfannenstiel incision was made and carried down through the subcutaneous tissue to the fascia. Fascial incision was made and extended transversely. The fascia was from the underlying rectus tissue superiorly and inferiorly. The peritoneum was identified and entered. Peritoneal incision was extended longitudinally. The utero-vesical peritoneal reflection was incised transversely and the bladder flap was bluntly freed from the lower uterine segment. A low transverse uterine incision was made sharply with a scalpel and extended bluntly in a cephalocaudad direction. A baby boy was delivered from a breech presentation with APGARS as above. After the umbilical cord was clamped and cut cord blood was obtained for evaluation. The placenta was removed intact and appeared normal. The uterus was exteriorized and cleared of clots. Internal exam of uterus did show a septum/projection at midpoint of uterus that extended down about 4 cm or so. This became less prominent as the uterus began to involute. The uterine incision was closed with running locked sutures of 0 Vicryl. Hemostasis was obtained with a second imbricating layer of 0 vicryl. The uterus was then placed back into the abdomen. The infracolic gutters were cleared of blood clots. The fascia was then reapproximated with running sutures of 0 Vicryl. The sucutaneous tissue was irrigated with sterile warm normal saline, hemostasis obtained with cautery. This layer was closed with a running 0 vicryl. The skin was reapproximated with running Subcuticular 4-0 monocryl sutures. Instrument, sponge, and needle counts were correct prior the abdominal closure and at the conclusion of the case. HPI Initial Comments: [facility] Post-Op/Procedure Note Patient Name: AUGUSTUS FENG Date of : 89 Patient Status: Inpatient Attending Provider: La Sepulveda Date: 11/20/18 08:59 Initialization Date: 11/20/18 08:59 - General Post-Op/Procedure Note Date of Surgery/Procedure: 11/20/18 Operative Procedure(s): Repeat Findings: Minimal scar tissue between the rectus and fascia. Minimal scar tissue between the bladder and AHSAN. Baby Boy in a breech presentation with APGARS of 8 & 9 and weight of 5 lbs 13 oz. Approximate 4 cm projection/septum noted at fundus of uterine cavity. This became less pronounced as uterus continued to involute. Pre Op Diagnosis: 37 weeks gestation. IUGR. Breech presentation. Hx of c- section Post-Op Diagnosis: Same Anesthesia Technique: Spinal Primary Surgeon: La Sepulveda Secondary Surgeon: Shelley London Anesthesia Provider: You Ren Reason Irrigation Engineer Was Necessary: Speed, safety of procedure Pathology: Cord blood collected, placenta discarded Fluid Replacement, Intraop: 2,000 Output, Urine Amount: 200 EBL in mLs: 500 Complications: None Condition: Good Free Text/Narrative:: The risks, benefits, indications, potential complications, and alternatives were explained to the patient and informed consent obtained. After induction of anesthesia, the patient was placed in a supine position and then draped and prepped in the usual sterile manner. A Pfannenstiel incision was made and carried down through the subcutaneous tissue to the fascia. Fascial incision was made and extended transversely. The fascia was from the underlying rectus tissue superiorly and inferiorly. The peritoneum was identified and entered. Peritoneal incision was extended longitudinally. The utero-vesical peritoneal reflection was incised transversely and the bladder flap was bluntly freed from the lower uterine segment. A low transverse uterine incision was made sharply with a scalpel and extended bluntly in a cephalocaudad direction. A baby boy was delivered from a breech presentation with APGARS as above. After the umbilical cord was clamped and cut cord blood was obtained for evaluation. The placenta was removed intact and appeared normal. The uterus was exteriorized and cleared of clots. Internal exam of uterus did show a septum/projection at midpoint of uterus that extended down about 4 cm or so. This became less prominent as the uterus began to involute. The uterine incision was closed with running locked sutures of 0 Vicryl. Hemostasis was obtained with a second imbricating layer of 0 vicryl. The uterus was then placed back into the abdomen. The infracolic gutters were cleared of blood clots. The fascia was then reapproximated with running sutures of 0 Vicryl. The sucutaneous tissue was irrigated with sterile warm normal saline, hemostasis obtained with cautery. This layer was closed with a running 0 vicryl. The skin was reapproximated with running Subcuticular 4-0 monocryl sutures. Instrument, sponge, and needle counts were correct prior the abdominal closure and at the conclusion of the case. Brief History: [facility] . Post-Op/Procedure Note. [id number]. Date of : [birth year]Patient Status: Inpatient. Attending Provider: La Sepulveda CAccount Number: [id number]. Date: 11/20/18 08:59Initialization Date: 11/20/18 08:59. - General Post-Op/Procedure Note. Date of Surgery/Procedure: 11/20/18. Operative Procedure(s): Repeat . Findings: Minimal scar tissue between the rectus and fascia. Minimal scar tissue between the bladder and AHSAN. Baby Boy in a breech presentation with APGARS of 8 & 9 and weight of 5 lbs 13 oz. Approximate 4 cm projection/septum noted at fundus of uterine cavity. This became less pronounced as uterus continued to involute. Pre Op Diagnosis: 37 weeks gestation. IUGR. Breech presentation. Hx of . Post-Op Diagnosis: Same. Anesthesia Technique: Spinal. Primary Surgeon: La Sepulveda. Secondary Surgeon: Shelley London. Anesthesia Provider: You Ren. Reason Irrigation Engineer Was Necessary: Speed, safety of procedure. Pathology: Cord blood collected, placenta discarded. Fluid Replacement, Intraop: 2,000. Output, Urine Amount: 200. EBL in mLs: 500. Complications: None. Condition: Good. Free Text/Narrative:: The risks, benefits, indications , potential complications, and alternatives were explained to the patient and informed consent obtained. After induction of anesthesia, the patient was placed in a supine position and then draped and prepped in the usual sterile manner. A Pfannenstiel incision was made and carried down through the subcutaneous tissue to the fascia. Fascial incision was made and extended transversely. The fascia was from the underlying rectus tissue superiorly and inferiorly. The peritoneum was identified and entered. Peritoneal incision was extended longitudinally. The utero-vesical peritoneal reflection was incised transversely and the bladder flap was bluntly freed from the lower uterine segment. A low transverse uterine incision was made sharply with a scalpel and extended bluntly in a cephalocaudad direction. A baby boy was delivered from a breech presentation with APGARS as above. After the umbilical cord was clamped and cut cord blood was obtained for evaluation. The placenta was removed intact and appeared normal. The uterus was exteriorized and cleared of clots. Internal exam of uterus did show a septum/projection at midpoint of uterus that extended down about 4 cm or so. This became less prominent as the uterus began to involute. The uterine incision was closed with running locked sutures of 0 Vicryl. Hemostasis was obtained with a second imbricating layer of 0 vicryl. The uterus was then placed back into the abdomen. The infracolic gutters were cleared of blood clots. The fascia was then reapproximated with running sutures of 0 Vicryl. The sucutaneous tissue was irrigated with sterile warm normal saline, hemostasis obtained with cautery. This layer was closed with a running 0 vicryl. The skin was reapproximated with running Subcuticular 4-0 monocryl sutures. Instrument, sponge, and needle counts were correct prior the abdominal closure and at the conclusion of the case. Diagnosis: Stroke: No - Discharge Data Discharge Date: 11/22/18 Discharge Disposition: Home, Self-Care 01 Condition: Good - Discharge Diagnosis/Problem(s) (1) 37 weeks gestation of SNOMED Code(s): 61010450 ICD Code: Z3A.37 - 37 WEEKS GESTATION OF Status: Acute Current Visit: Yes (2) Breech presentation SNOMED Code(s): 4144934 ICD Code: O32.1XX0 - MATERNAL CARE FOR BREECH PRESENTATION, UNSP Status: Acute Current Visit: Yes Qualifiers: Fetus number: single or unspecified fetus Qualified Code(s): O32.1XX0 - Maternal care for breech presentation, not applicable or unspecified (3) History of SNOMED Code(s): 366880888 ICD Code: Z98.891 - HISTORY OF UTERINE SCAR FROM PREVIOUS SURGERY Status: Acute Current Visit: Yes (4) IUGR (intrauterine growth restriction) SNOMED Code(s): 77896556 ICD Code: [id number] - Status: Acute Current Visit: Yes - Patient Summary/Data Operative Procedure(s) Performed: Repeat Complications: none Consults: none Hospital Course: uneventful - Patient Instructions Diet: Usual Diet as Tolerated Driving: Do Not Drive (x2 weeks) Showering/Bathing: May Shower, No Tub Bathing/Swimming (x6 weeks) Wound/Incision Care: Keep Operative Site/Wound Site Clean and Dry Notify Provider of: Fever, Increased Pain, Swelling and Redness, Drainage, Nausea and/or Vomiting - Discharge Plan *PRESCRIPTION DRUG MONITORING PROGRAM REVIEWED*: Yes *COPY OF PRESCRIPTION DRUG MONITORING REPORT IN PATIENT GUILHERME: Yes Prescriptions/Med Rec: Acetaminophen [Tylenol Extra Strength] 500 mg PO Q6H #50 tablet Acetaminophen/oxyCODONE [Percocet 325-5 MG] 1 tab PO Q6H PRN #10 tablet PRN Reason: Pain (Moderate 4-6) Home Medications: Home Meds Acetaminophen [Tylenol Extra Strength] 500 mg PO Q6H #50 tablet 11/22/18 [Rx] Acetaminophen/oxyCODONE [Percocet 325-5 MG] 1 tab PO Q6H PRN #10 tablet [Rx] Docusate Sodium [Colace] 100 mg PO Q12H PRN cap 11/22/18 [Rx] Ibuprofen [Motrin] 600 mg PO Q6H PRN tablet 11/22/18 [Rx] Lanolin [Lansinoh HPA] 1 applic TOP ASDIRECTED PRN tube 11/22/18 [Rx] Referrals: La Sepulveda MD [Primary Care Provider] - (2 weeks) - Discharge Summary/Plan Comment DC Time >30 min.: No - Patient Data Vitals - Most Recent: Last Vital Signs Temp 97.5 F 11/22/18 02:14 Pulse 78 11/22/18 02:14 Resp 16 11/22/18 02:14 BP 128/70 11/22/18 02:14 Pulse Ox 95 11/22/18 02:14 Weight - Most Recent: 174 lb 3 oz I&O - Last 24 hours: Intake & Output 11/21/18 11/22/18 11/22/18 22:59 06:59 14:59 Intake Total 240 Balance 240 Med Orders - Current: Current Medications Docusate Sodium (Colace) 100 mg PO Q12H PRN PRN Reason: Constipation Emollient Ointment (Lansinoh Hpa) 0 gm TOP ASDIRECTED PRN PRN Reason: Sore Nipples Ibuprofen (Motrin) 600 mg PO Q6H PRN PRN Reason: mild pain or fever Last Admin: 11/22/18 06:21 Dose: 600 mg Naloxone HCl (Narcan) 0.1 mg IVPUSH SEECOMMENT PRN PRN Reason: Respiratory Depression Ondansetron HCl (Zofran) 4 mg IV Q8H PRN PRN Reason: Nausea/Vomiting Oxycodone/Acetaminophen (Percocet 325-5 Mg) 2 tab PO Q4H PRN PRN Reason: Pain (moderate 4-6) Last Admin: 11/21/18 21:30 Dose: 1 tab Discontinued Medications Cefazolin Sodium (Ancef) Confirm Administered Dose 2 gm .ROUTE .STK-MED ONE Stop: 11/20/18 07:36 Citric Acid/Sodium Citrate (Bicitra Solution) 30 ml PO ONETIME ONE Stop: 11/20/18 04:46 Last Admin: 11/20/18 07:14 Dose: 30 ml Citric Acid/Sodium Citrate (Bicitra Solution) Confirm Administered Dose 30 ml .ROUTE .STK-MED ONE Stop: 11/20/18 07:11 Last Admin: 11/20/18 20:58 Dose: Not Given Diphenhydramine HCl (Benadryl) 25 mg IVPUSH Q6H PRN PRN Reason: Pruritis Stop: 11/20/18 12:00 Ephedrine Sulfate (Ephedrine Sulfate) 5 mg IVPUSH ASDIRECTED PRN PRN Reason: Hypotension Stop: 11/20/18 12:00 Fentanyl (Sublimaze) 50 mcg IVPUSH Q5M PRN PRN Reason: Pain Stop: 11/20/18 12:00 Cefazolin Sodium/Dextrose 2 gm (/ Premix) 50 mls @ 100 mls/hr IV ONETIME ONE Stop: 11/20/18 05:14 Lactated Ringer's (Ringers, Lactated) 1,000 mls @ 125 mls/hr IV ASDIRECTED [facility] Last Admin: 11/20/18 05:33 Dose: 125 mls/hr Lactated Ringer's (Ringers, Lactated) Confirm Administered Dose 1,000 mls @ as directed .ROUTE .STK-MED ONE Stop: 11/20/18 07:39 Dextrose/Lactated Ringer's (Dextrose 5%-Lactated Ringers) 1,000 mls @ 125 mls/ hr IV ASDIRECTED [facility] Stop: 11/20/18 17:57 Last Admin: 11/20/18 12:14 Dose: 125 mls/hr Ketorolac Tromethamine (Toradol) Confirm Administered Dose 30 mg .ROUTE .STK- MED ONE Stop: 11/20/18 08:38 Ketorolac Tromethamine (Toradol) 30 mg IVPUSH Q6H [facility] Stop: 11/21/18 02:31 Last Admin: 11/21/18 02:26 Dose: 30 mg Meperidine HCl (Demerol) Confirm Administered Dose 50 mg .ROUTE .STK-MED ONE Stop: 11/20/18 08:44 Meperidine HCl (Meperidine) 12.5 mg IVPUSH ONETIME PRN PRN Reason: SHIVERING Stop: 11/20/18 12:00 Metoclopramide HCl (Reglan) 10 mg IVPUSH ONETIME ONE Stop: 11/20/18 04:46 Last Admin: 11/20/18 07:15 Dose: 10 mg Metoclopramide HCl (Reglan) Confirm Administered Dose 10 mg .ROUTE .STK-MED ONE Stop: 11/20/18 07:11 Last Admin: 11/20/18 20:58 Dose: Not Given Morphine Sulfate (Duramorph Pf) Confirm Administered Dose 1 mg .ROUTE .STK-MED ONE Stop: 11/20/18 07:30 Nalbuphine HCl (Nubain) 10 mg IVPUSH Q2H PRN PRN Reason: pain Ondansetron HCl (Zofran) Confirm Administered Dose 4 mg .ROUTE .STK-MED ONE Stop: 11/20/18 07:36 Ondansetron HCl (Zofran) 4 mg IVPUSH ONETIME PRN PRN Reason: Nausea/Vomiting Stop: 11/20/18 12:00 Oxytocin (Pitocin) Confirm Administered Dose 20 unit .ROUTE .STK-MED ONE Stop: 11/20/18 07:33 Sodium Chloride (Saline Flush) 10 ml FLUSH ASDIRECTED PRN PRN Reason: Keep Vein Open Terbutaline Sulfate (Brethine) 0.25 mg SUBCUT ONETIME ONE Stop: 11/20/18 07:09 Last Admin: 11/20/18 07:39 Dose: 0.25 mg Terbutaline Sulfate (Brethine) Confirm Administered Dose 1 mg .ROUTE .STK-MED ONE Stop: 11/20/18 07:11 Last Admin: 11/20/18 20:58 Dose: Not Given
== END 2018-11-22 13:26 | disposition home or self-care (01) | DRG 788 ==
LOC: JD.OB 04:54
PROVIDERS: ADMIT Obstetrics & Gynecology; ATTEND Obstetrics & Gynecology
PROC: 10S0XZZ Reposition Products of Conception, External Approach (ICD-10-PCS; principal; 2018-11-20)
PROC: 6A550ZT Pheresis of Cord Blood Stem Cells, Single (ICD-10-PCS; principal; 2018-11-20)
PROC: 10D00Z1 Extraction of Products of Conception, Low, Open Approach (ICD-10-PCS; principal; 2018-11-20)
DX: O36.5930 Maternal care for other known or suspected poor fetal growth, third trimester, not applicable or unspecified (principal); O32.1XX0 Maternal care for breech presentation, not applicable or unspecified; O34.03 Maternal care for unspecified congenital malformation of uterus, third trimester; Q51.20 Other doubling of uterus, unspecified; Z37.0 Single live birth; Z91.040 Latex allergy status; Z3A.37 37 weeks gestation of pregnancy; O34.211 Maternal care for low transverse scar from previous cesarean delivery; N85.8 Other specified noninflammatory disorders of uterus
CPT/HCPCS: 01961; 36415; 59025; 85025; 85027; 86592; 86850; 86900; 86901; 94762; A9270-GY; J0690; J1885; J2175; J2274; J2405; J2590; J2765; J3105; J7042; J7120

== ENCOUNTER 2020-05-19 11:57 | Inpatient (IN) | payer OTHER ==
[2020-05-19] MEDS ORDERED: Sodium Chloride 0.9% 10 ML Syringe FLUSH PRN (12:04)
[2020-05-19] MEDS ORDERED: Nalbuphine 10 MG/ML Syringe IVPUSH PRN (12:04)
[2020-05-19] MEDS ORDERED: Ondansetron 4 MG/2 ML SDV IVPUSH PRN (12:04)
--- NOTE | 2020-05-19 12:06 | PCM.LDHP ---
L&D History of Present Illness - General Date of Service: 05/19/20 Admit Problem/Dx: Patient Status Order with Admit Dx/Problem 05/19/20 12:04 Patient Status [ADT] Routine Admission Diagnosis/Problem Admission Diagnosis/Problem Normal labor Source of Information: Patient History Limitations: Reports: No Limitations - History of Present Illness Introduction:: Patient is a 30 y/o at 39 2/7 wks who presents after SVE in clinic showed advanced dilation. She is otherwise doing well today - Related Data Allergies/Adverse Reactions: Allergies Allergy/AdvReac Type Severity Reaction Status Date / Time latex Allergy Mild skin Verified 05/19/20 12:28 irritation Home Medications: Home Meds Vits #93/Iron Fum/FA [ Formula Tablet] 1 each PO 05/19/20 [History] Past Medical History HEENT History: Reports: Impaired Vision Other HEENT History: wears glasses AS400 ADMINISTRATOR History: Reports: : 3 Para: 2 LMP (Approximate): - Past Surgical History HEENT Surgical History: Reports: Myringotomy w Tube(s), Oral Surgery Female Surgical History: Reports: Section (x2) Social & Family History - Family History Family Medical History: Noncontributory - Tobacco Use Smoking Status *Q: Never Smoker - Caffeine Use Caffeine Use: Reports: Coffee - Alcohol Use Alcohol Use History: No - Recreational Drug Use Recreational Drug Use: No H&P Review of Systems - Review of Systems: Review Of Systems: See Below General: Reports: No Symptoms Pulmonary: Reports: No Symptoms Cardiovascular: Reports: No Symptoms Gastrointestinal: Reports: No Symptoms Genitourinary: Reports: No Symptoms Musculoskeletal: Reports: No Symptoms Psychiatric: Reports: No Symptoms L&D Exam - Exam Exam: See Below - OB Specific Contraction Intensity: Mild Movement: Active Heart Tones: Present Heart Tones per Min: 140 Heart Rate (FHR) Variability: Moderate (6-25 bmp) Presentation: Vertex - Thompson Score Thompson Score Cervix Position: Anterior Thompson Score Consistency: Soft Thopmson Score Effacement: >80% Thompson Score Dilation: > 5 cm Thompson Score Infant's Station: -1 ,0 Thompson Score Total: 12 - Exam General: Alert, Oriented, Cooperative Lungs: Clear to Auscultation, Normal Respiratory Effort Cardiovascular: Regular Rate, Regular Rhythm GI/Abdominal Exam: Soft, Non-Tender Genitourinary: Normal external exam Extremities: Normal Inspection Skin: Warm, Dry, Intact - Patient Data Result Diagrams: 05/19/20 12:35 - Problem List (1) 39 weeks gestation of SNOMED Code(s): 12336083 ICD Code: Z3A.39 - 39 WEEKS GESTATION OF Status: Acute Current Visit: Yes (2) History of SNOMED Code(s): 175126223 ICD Code: Z98.891 - HISTORY OF UTERINE SCAR FROM PREVIOUS SURGERY Status: Acute Current Visit: No Problem List Initiated/Reviewed/Updated: Yes Orders Last 24hrs: Active Orders 24 hr Category Date Time Status Patient Status [ADT] Routine ADT 05/19/20 12:04 Ordered Activity as Tolerated [RC] PFP Care 05/19/20 12:04 Ordered Communication Order [RC] ASDIRECTED Care 05/19/20 12:04 Ordered Heart Tones [RC] ASDIRECTED Care 05/19/20 12:04 Ordered Non Stress Test [RC] PER UNIT ROUTINE Care 05/19/20 12:04 Ordered Notify Provider [RC] PRN Care 05/19/20 12:04 Ordered Peripheral IV Care [RC] . DIRECTED Care 05/19/20 12:05 Ordered Vital Signs [RC] PER UNIT ROUTINE Care 05/19/20 12:04 Ordered Regular Diet [DIET] Diet 05/19/20 Lunch Ordered CBC W/O DIFF,HEMOGRAM [HEME] Routine Lab 05/19/20 12:04 Ordered RAPID PLASMA REAGIN,RPR [CHEM] Routine Lab 05/19/20 12:04 Ordered TYPE AND SCREEN [BBK] Routine Lab 05/19/20 12:04 Ordered Lactated Ringers [Ringers, Lactated] 1,000 ml Med 05/19/20 12:15 Ordered IV ASDIRECTED Nalbuphine [Nubain] Med 05/19/20 12:04 Ordered 10 mg IVPUSH Q2H PRN Ondansetron [Zofran] Med 05/19/20 12:04 Ordered 4 mg IVPUSH Q4H PRN Oxytocin/Lactated Ringers [Pitocin in LR 10 Units/1,000 Med 05/19/20 12:15 Ordered ML] 10 unit in 1,000 ml IV .CONTINUOUS Sodium Chloride 0.9% [Saline Flush] Med 05/19/20 12:04 Ordered 10 ml FLUSH ASDIRECTED PRN Electronic Heart Tones Internal [WOMSER] Per Unit Oth 05/19/20 12:04 Ordered Routine Peripheral IV Insertion Adult [OM.PC] Routine Oth 05/19/20 12:04 Ordered Resuscitation Status Routine Resus Stat 05/19/20 12:04 Ordered Assessment/Plan Comment:: * Desires TOLAC. Aware of risks/benefits * Labs done * GBS negative * AROM done * Pain management per patient preference * Anticipate
[2020-05-19] MEDS ORDERED: Lactated Ringers 1,000 ML IV SCH (12:15)
--- NOTE | 2020-05-19 13:37 | PCM.PREANE ---
Preanesthetic Assessment - Procedure Proposed Procedure: Possible epidural / SAB , assessment for possible - Anesthesia/Transfusion/Family Hx Anesthesia History: Prior Anesthesia Reaction Other Type of Anesthesia Reaction Comment: swelling of one side of face per patient, spinal headaches /p SAB Transfusion History: No Prior Transfusion(s) Intubation History: Unknown - Review of Systems General: No Symptoms Pulmonary: No Symptoms Cardiovascular: No Symptoms Gastrointestinal: No Symptoms Neurological: No Symptoms Other: Reports: None - Physical Assessment Vital Signs: Last Vital Signs Temp 98.3 F 05/19/20 12:27 Pulse 89 05/19/20 12:27 Resp 16 05/19/20 12:27 BP 139/82 05/19/20 12:27 Pulse Ox 97 05/19/20 12:27 Height: 1.73 m Weight: 77.02 kg ASA Class: 2 Mental Status: Alert & Oriented x3 Airway Class: Mallampati = 2 Dentition: Reports: Normal Dentition Thyro-Mental Finger Breadths: 3 Mouth Opening Finger Breadths: 3 ROM/Head Extension: Full Lungs: Clear to Auscultation, Normal Respiratory Effort Cardiovascular: Regular Rate, Regular Rhythm - Lab Values: Laboratory Last Values WBC 8.74 K/mm3 (3.98-10.04) 05/19/20 12:35 RBC 3.69 M/mm3 (3.98-5.22) L 05/19/20 12:35 Hgb 11.1 gm/dl (11.2-15.7) L 05/19/20 12:35 Hct 33.3 % (34.1-44.9) L 05/19/20 12:35 MCV 90.2 fl (79.4-94.8) 05/19/20 12:35 MCH 30.1 pg (25.6-32.2) 05/19/20 12:35 MCHC 33.3 g/dl (32.2-35.5) 05/19/20 12:35 RDW Std Deviation 40.3 fL (36.4-46.3) 05/19/20 12:35 Plt Count 318 K/mm3 (182-369) 05/19/20 12:35 MPV 9.8 fl (9.4-12.3) 05/19/20 12:35 COVID-19 (GRACE) Negative (NEGATIVE) 05/19/20 12:50 - Allergies Allergies/Adverse Reactions: Allergies Allergy/AdvReac Type Severity Reaction Status Date / Time latex Allergy Mild skin Verified 05/19/20 12:28 irritation - Acknowledgements Anesthesia Type Planned: General Anesthesia, Spinal, Epidural Pt an Appropriate Candidate for the Planned Anesthesia: Yes Alternatives and Risks of Anesthesia Discussed w Pt/Guardian: Yes Pt/Guardian Understands and Agrees with Anesthesia Plan: Yes Additional Comments: patient wants to attempt vaginal after , but ready for SHANDA/SAB or GA in case it's needed. 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 OB/BYN History: 2 previous sections, 2016, 2018 - Infectious Disease History Infectious Disease History: Reports: Chicken Pox - Past Surgical History HEENT Surgical History: Reports: Myringotomy w Tube(s), Oral Surgery Female Surgical History: Reports: Section (2016, 2018) - SUBSTANCE USE Smoking Status *Q: Never Smoker Recreational Drug Use History: No - HOME MEDS Home Medications: Home Meds Acetaminophen [Tylenol Extra Strength] 500 mg PO Q6H #50 tablet 11/22/18 [Rx] Acetaminophen/oxyCODONE [Percocet 325-5 MG] 1 tab PO Q6H PRN #10 tablet 11/22/18 [Rx] Docusate Sodium [Colace] 100 mg PO Q12H PRN cap 11/22/18 [Rx] Ibuprofen [Motrin] 600 mg PO Q6H PRN tablet 11/22/18 [Rx] Lanolin [Lansinoh HPA] 1 applic TOP ASDIRECTED PRN tube 11/22/18 [Rx] - CURRENT (IN HOUSE) MEDS Current Meds: Current Medications Oxytocin/Lactated Ringer's (Pitocin In Lr 10 Units/1,000 Ml) 10 unit in 1,000 mls @ 500 mls/hr IV .CONTINUOUS DANIEL Lactated Ringer's (Ringers, Lactated) 1,000 mls @ 100 mls/hr IV ASDIRECTED DANIEL Nalbuphine HCl (Nubain) 10 mg IVPUSH Q2H PRN PRN Reason: Pain Ondansetron HCl (Zofran) 4 mg IVPUSH Q4H PRN PRN Reason: Nausea/Vomiting Sodium Chloride (Saline Flush) 10 ml FLUSH ASDIRECTED PRN PRN Reason: Keep Vein Open
[2020-05-19] MEDS ORDERED: Lidocaine 1% 50 ML MDV INJECT ONE (14:42)
[2020-05-19] MEDS ORDERED: Lidocaine 1% 50 ML MDV ONE (14:44)
[2020-05-19] MEDS: Oxytocin/Lactated Ringers 10 UNIT/1,000 ML BAG IV SCH ×2 (15:36→17:55)
--- NOTE | 2020-05-19 16:18 | PCM.DEL ---
L & D Note - General Info Date of Service: 05/19/20 - Delivery Note Labor: Induced by ARM Delivery Outcome: Livebirth Infant Delivery Method: Spontaneous Vaginal Delivery-Single Infant Delivery Mode: Spontaneous Presentation: Left Occiput Anterior (ANIA) Nuchal Cord: None Anesthesia Type: None Amniotic Fluid Description: Clear Episiotomy Type: None Laceration: 1st Degree Placenta: Intact, Spontaneous Cord: 3 Vessels Estimated Blood Loss: 100 Resuscitation Needed: Yes : Bulb Syringe, Stimulated, Warmed, Liberty Used, Warmer Used - General Info Date of Service: 05/19/20 - Patient Data Vitals - Most Recent: Last Vital Signs Temp 36.8 C 05/19/20 12:27 Pulse 89 05/19/20 12:27 Resp 16 05/19/20 12:27 BP 139/82 05/19/20 12:27 Pulse Ox 97 05/19/20 12:27 Weight - Most Recent: 77.02 kg Lab Results Last 24 Hours: Laboratory Results - last 24 hr 05/19/20 05/19/20 05/19/20 Range/Units 12:35 12:35 12:50 WBC 8.74 (3.98-10.04) K/mm3 RBC 3.69 L (3.98-5.22) M/mm3 Hgb 11.1 L (11.2-15.7) gm/dl Hct 33.3 L (34.1-44.9) % MCV 90.2 (79.4-94.8) fl MCH 30.1 (25.6-32.2) pg MCHC 33.3 (32.2-35.5) g/dl RDW Std Deviation 40.3 (36.4-46.3) fL Plt Count 318 (182-369) K/mm3 MPV 9.8 (9.4-12.3) fl COVID-19 (GRACE) Negative (NEGATIVE) Blood Type A POSITIVE Gel Antibody Screen Negative Med Orders - Current: Current Medications Oxytocin/Lactated Ringer's (Pitocin In Lr 10 Units/1,000 Ml) 10 unit in 1,000 mls @ 500 mls/hr IV .CONTINUOUS DANIEL Last Admin: 05/19/20 15:36 Dose: 500 mls/hr Documented by: Lactated Ringer's (Ringers, Lactated) 1,000 mls @ 100 mls/hr IV ASDIRECTED DANIEL Nalbuphine HCl (Nubain) 10 mg IVPUSH Q2H PRN PRN Reason: Pain Ondansetron HCl (Zofran) 4 mg IVPUSH Q4H PRN PRN Reason: Nausea/Vomiting Sodium Chloride (Saline Flush) 10 ml FLUSH ASDIRECTED PRN PRN Reason: Keep Vein Open Discontinued Medications Lidocaine HCl (Xylocaine 1%) 10 ml INJECT ONETIME ONE Stop: 05/19/20 14:43 Last Admin: 05/19/20 16:00 Dose: Not Given Documented by: Lidocaine HCl (Xylocaine 1%) Confirm Administered Dose 50 ml .ROUTE .STK-MED ONE Stop: 05/19/20 14:45 Last Admin: 05/19/20 14:51 Dose: Not Given Documented by: - Problem List & Annotations (1) 39 weeks gestation of SNOMED Code(s): 42508078 Code(s): Z3A.39 - 39 WEEKS GESTATION OF Status: Acute Current Visit: Yes (2) History of SNOMED Code(s): 012403190 Code(s): Z98.891 - HISTORY OF UTERINE SCAR FROM PREVIOUS SURGERY Status: Acute Current Visit: No (3) , delivered, current hospitalization SNOMED Code(s): 813172107 Code(s): O34.219 - MATERNAL CARE FOR UNSP TYPE SCAR FROM PREVIOUS DEL Status: Acute Current Visit: Yes - Problem List Review Problem List Initiated/Reviewed/Updated: Yes - My Orders Last 24 Hours: My Active Orders 05/19/20 Lunch Regular Diet [DIET] 05/19/20 12:04 Patient Status [ADT] Routine Activity as Tolerated [RC] PFP Communication Order [RC] ASDIRECTED Heart Tones [RC] ASDIRECTED Non Stress Test [RC] PER UNIT ROUTINE Notify Provider [RC] PRN Vital Signs [RC] PER UNIT ROUTINE Nalbuphine [Nubain] 10 mg IVPUSH Q2H PRN Ondansetron [Zofran] 4 mg IVPUSH Q4H PRN Sodium Chloride 0.9% [Saline Flush] 10 ml FLUSH ASDIRECTED PRN Electronic Heart Tones Internal [WOMSER] Per Unit Routine Peripheral IV Insertion Adult [OM.PC] Routine Resuscitation Status Routine 05/19/20 12:05 Peripheral IV Care [RC] . DIRECTED 05/19/20 12:15 Lactated Ringers [Ringers, Lactated] 1,000 ml IV ASDIRECTED Oxytocin/Lactated Ringers [Pitocin in LR 10 Units/1,000 ML] 10 unit in 1,000 ml IV .CONTINUOUS 05/19/20 12:35 RAPID PLASMA REAGIN,RPR [CHEM] Routine 05/19/20 13:05 Verify Patient Consent Obtain [RC] ASDIRECTED - Assessment Assessment:: PPD#0 - Plan Plan:: * Routine cares * Breast feeding * Discharge home in 1-2 days
[2020-05-19] MEDS ORDERED: Benzocaine/Menthol 20%-0.5% Spray 56 GM Canister TOP PRN (16:23)
[2020-05-19] MEDS ORDERED: Docusate Sodium 100 MG Cap PO PRN (16:23)
[2020-05-19] MEDS ORDERED: Acetaminophen 325 MG Tab PO PRN (16:23)
[2020-05-19] MEDS ORDERED: Witch Hazel Medicated Pads 40/Jar TOP PRN (16:23)
[2020-05-19] MEDS: Ibuprofen 600 MG Tab PO PRN ×2 (16:45→21:00)
[2020-05-19] MEDS ORDERED: Oxytocin/Lactated Ringers 10 UNIT/1,000 ML BAG IV ONE (17:52)
[2020-05-20] MEDS: Ibuprofen 600 MG Tab PO PRN ×2 (01:41→08:31)
--- NOTE | 2020-05-20 05:34 | PCM.PNPP ---
- General Info Date of Service: 05/20/20 Functional Status: Reports: Pain Controlled, Tolerating Diet, Ambulating, Urinating - Review of Systems General: Reports: No Symptoms Pulmonary: Reports: No Symptoms Cardiovascular: Reports: No Symptoms Gastrointestinal: Reports: No Symptoms Genitourinary: Reports: No Symptoms Musculoskeletal: Reports: No Symptoms Neurological: Reports: No Symptoms - Patient Data Vital Signs - Most Recent: Last Vital Signs Temp 36.7 C 05/20/20 03:00 Pulse 77 05/20/20 03:00 Resp 14 05/20/20 03:00 BP 121/73 05/20/20 03:00 Pulse Ox 97 05/20/20 03:00 Weight - Most Recent: 77.02 kg I&O - Last 24 Hours: Intake & Output 05/19/20 05/19/20 05/20/20 14:59 22:59 06:59 Intake Total 1000 Balance 1000 Lab Results - Last 24 Hours: Laboratory Results - last 24 hr 05/19/20 05/19/20 05/19/20 Range/Units 12:35 12:35 12:35 WBC 8.74 (3.98-10.04) K/mm3 RBC 3.69 L (3.98-5.22) M/mm3 Hgb 11.1 L (11.2-15.7) gm/dl Hct 33.3 L (34.1-44.9) % MCV 90.2 (79.4-94.8) fl MCH 30.1 (25.6-32.2) pg MCHC 33.3 (32.2-35.5) g/dl RDW Std Deviation 40.3 (36.4-46.3) fL Plt Count 318 (182-369) K/mm3 MPV 9.8 (9.4-12.3) fl RPR Non-reactive (NONREACTIVE) COVID-19 ([facility]) (NEGATIVE) Blood Type A POSITIVE Gel Antibody Screen Negative 05/19/20 Range/Units 12:50 WBC (3.98-10.04) K/mm3 RBC (3.98-5.22) M/mm3 Hgb (11.2-15.7) gm/dl Hct (34.1-44.9) % MCV (79.4-94.8) fl MCH (25.6-32.2) pg MCHC (32.2-35.5) g/dl RDW Std Deviation (36.4-46.3) fL Plt Count (182-369) K/mm3 MPV (9.4-12.3) fl RPR (NONREACTIVE) COVID-19 ([facility]) Negative (NEGATIVE) Blood Type Gel Antibody Screen Med Orders - Current: Current Medications Acetaminophen (Tylenol) 650 mg PO Q4H PRN PRN Reason: mild pain or fever Benzocaine/Menthol (Dermoplast Pain Relief [place]) 0 gm TOP ASDIRECTED PRN PRN Reason: Perineal Comfort Measure Last Admin: 05/19/20 16:45 Dose: 1 applic Documented by: Docusate Sodium (Colace) 100 mg PO BID PRN PRN Reason: Constipation Ibuprofen (Motrin) 600 mg PO Q4H PRN PRN Reason: Mild pain or fever Last Admin: 05/20/20 01:41 Dose: 600 mg Documented by: Gladys Irizarry) 1 pad TOP ASDIRECTED PRN PRN Reason: Perineal Comfort Measure Last Admin: 05/19/20 16:45 Dose: 1 applic Documented by: Discontinued Medications Oxytocin/Lactated Ringer's (Pitocin In Lr 10 Units/1,000 Ml) 10 unit in 1,000 mls @ 500 mls/hr IV .CONTINUOUS DANIEL Last Infusion: 05/19/20 17:56 Dose: 250 mls/hr Documented by: Lactated Ringer's (Ringers, Lactated) 1,000 mls @ 100 mls/hr IV ASDIRECTED DANIEL Oxytocin/Lactated Ringer's (Pitocin In Lr 10 Units/1,000 Ml) Confirm Administered Dose 10 unit in 1,000 mls @ as directed IV .STK-MED ONE Stop: 05/19/20 17:53 Last Admin: 05/19/20 19:14 Dose: Not Given Documented by: Lidocaine HCl (Xylocaine 1%) 10 ml INJECT ONETIME ONE Stop: 05/19/20 14:43 Last Admin: 05/19/20 16:00 Dose: Not Given Documented by: Lidocaine HCl (Xylocaine 1%) Confirm Administered Dose 50 ml .ROUTE .STK-MED ONE Stop: 05/19/20 14:45 Last Admin: 05/19/20 14:51 Dose: Not Given Documented by: Nalbuphine HCl (Nubain) 10 mg IVPUSH Q2H PRN PRN Reason: Pain Ondansetron HCl (Zofran) 4 mg IVPUSH Q4H PRN PRN Reason: Nausea/Vomiting Sodium Chloride (Saline Flush) 10 ml FLUSH ASDIRECTED PRN PRN Reason: Keep Vein Open - Interaction Infant Disposition, : in Room with Family Interaction: Holding Infant Feeding: Breastfed Infant; Nursed Well Support Person: - Recovery Exam Fundal Tone: Firm Fundal Level: 2 Fingerbreadths Below Umbilicus Fundal Placement: Midline Lochia Amount: Small, Moderate Lochia Color: Rubra/Red Perineum Description: Intact, Minimal Bruising/Swelling Episiotomy/Laceration: None Bladder Status: Voiding Urinary Elimination: Voided - Exam General: Alert, Oriented, Cooperative GI/Abdominal Exam: Soft, Non-Tender Extremities: Normal Inspection Skin: Warm, Dry, Intact - Problem List & Annotations (1) 39 weeks gestation of SNOMED Code(s): 83886256 Code(s): Z3A.39 - 39 WEEKS GESTATION OF Status: Acute Current Visit: Yes (2) History of SNOMED Code(s): 692298775 Code(s): Z98.891 - HISTORY OF UTERINE SCAR FROM PREVIOUS SURGERY Status: Acute Current Visit: No (3) , delivered, current hospitalization SNOMED Code(s): 577273968 Code(s): O34.219 - MATERNAL CARE FOR UNSP TYPE SCAR FROM PREVIOUS DEL Status: Acute Current Visit: Yes - Problem List Review Problem List Initiated/Reviewed/Updated: Yes - My Orders Last 24 Hours: My Active Orders 05/19/20 12:04 Resuscitation Status Routine 05/19/20 16:23 Acetaminophen [Tylenol] 650 mg PO Q4H PRN Benzocaine/Menthol [Dermoplast Pain Relief [place]] See Dose Instructions TOP ASDIRECTED PRN Docusate Sodium [Colace] 100 mg PO BID PRN Ibuprofen [Motrin] 600 mg PO Q4H PRN witch [place] [Tucks] 1 pad TOP ASDIRECTED PRN 05/19/20 16:23 Activity as Tolerated [RC] PER UNIT ROUTINE Vital Signs [RC] 03,09,15,21 Assess Lochia [WOMSER] Per Unit Routine Assess Uterine Involution [WOMSER] Per Unit Routine Breast Pump [WOMSER] Per Unit Routine Ice Therapy [OM.PC] Per Unit Routine Perineal Care [OM.PC] Per Unit Routine Peripheral IV Discontinue [OM.PC] Routine Sitz Bath [OM.PC] Per Unit Routine 05/19/20 16:30 Heat Therapy [OM.PC] PRN 05/19/20 Dinner Regular Diet [DIET] 05/20/20 16:30 Heat Therapy [OM.PC] PRN - Assessment Assessment:: PPD#1 - Plan Plan:: * Routine cares * Breast feeding * Discharge home today
--- NOTE | 2020-05-20 10:23 | PCM.DCSUM1 ---
Discharge Summary - Discharge Data Discharge Date: 05/20/20 Discharge Disposition: Home, Self-Care 01 Condition: Good - Referral to Home Health Primary Care Physician: La Sepulveda MD - Discharge Diagnosis/Problem(s) (1) 39 weeks gestation of SNOMED Code(s): 40345665 ICD Code: Z3A.39 - 39 WEEKS GESTATION OF Status: Acute Current Visit: Yes (2) History of SNOMED Code(s): 377297141 ICD Code: Z98.891 - HISTORY OF UTERINE SCAR FROM PREVIOUS SURGERY Status: Acute Current Visit: No (3) , delivered, current hospitalization SNOMED Code(s): 280511633 ICD Code: O34.219 - MATERNAL CARE FOR UNSP TYPE SCAR FROM PREVIOUS DEL Status: Acute Current Visit: Yes - Patient Summary/Data Complications: None Consults: NOne Recommended Follow-up Testing/Procedures: Follow up in 3 weeks for check Hospital Course: 30 y/o at 39 2/7 wks admitted with advanced cervical dilation. AROM done. Progressed rapidly to complete and underwent an uncomplicated . See note. did well. Was discharged home on PPD#1 - Patient Instructions Diet: Regular Diet as Tolerated Activity: As Tolerated Activity, Other: Pelvic rest for 6 weeks Driving: May Drive Today Showering/Bathing: May Shower Showering/Bathing, Other: May bathe Notify Provider of: Fever, Increased Pain, Swelling and Redness, Drainage, Nausea and/or Vomiting - Discharge Plan *PRESCRIPTION DRUG MONITORING PROGRAM REVIEWED*: No *COPY OF PRESCRIPTION DRUG MONITORING REPORT IN PATIENT GUILHERME: No Home Medications: Home Meds Docusate Sodium [Colace] 100 mg PO BID PRN cap 05/19/20 [Rx] Ibuprofen [Motrin] 600 mg PO Q4H PRN tablet 05/19/20 [Rx] Vits #93/Iron Fum/FA [ Formula Tablet] 1 each PO 05/19/20 [History] Referrals: La Sepulveda MD [Primary Care Provider] - (3 weeks for check - can be telehealth) - Discharge Summary/Plan Comment DC Time >30 min.: No - Patient Data Vitals - Most Recent: Last Vital Signs Temp 36.7 C 05/20/20 03:00 Pulse 77 05/20/20 03:00 Resp 14 05/20/20 03:00 BP 121/73 05/20/20 03:00 Pulse Ox 97 05/20/20 03:00 Weight - Most Recent: 77.02 kg I&O - Last 24 hours: Intake & Output 05/19/20 05/20/20 05/20/20 22:59 06:59 14:59 Intake Total 1000 Balance 1000 Lab Results - Last 24 hrs: Laboratory Results - last 24 hr 05/19/20 05/19/20 05/19/20 Range/Units 12:35 12:35 12:35 WBC 8.74 (3.98-10.04) K/mm3 RBC 3.69 L (3.98-5.22) M/mm3 Hgb 11.1 L (11.2-15.7) gm/dl Hct 33.3 L (34.1-44.9) % MCV 90.2 (79.4-94.8) fl MCH 30.1 (25.6-32.2) pg MCHC 33.3 (32.2-35.5) g/dl RDW Std Deviation 40.3 (36.4-46.3) fL Plt Count 318 (182-369) K/mm3 MPV 9.8 (9.4-12.3) fl RPR Non-reactive (NONREACTIVE) COVID-19 ([facility]) (NEGATIVE) Blood Type A POSITIVE Gel Antibody Screen Negative 05/19/20 Range/Units 12:50 WBC (3.98-10.04) K/mm3 RBC (3.98-5.22) M/mm3 Hgb (11.2-15.7) gm/dl Hct (34.1-44.9) % MCV (79.4-94.8) fl MCH (25.6-32.2) pg MCHC (32.2-35.5) g/dl RDW Std Deviation (36.4-46.3) fL Plt Count (182-369) K/mm3 MPV (9.4-12.3) fl RPR (NONREACTIVE) COVID-19 ([facility]ACE) Negative (NEGATIVE) Blood Type Gel Antibody Screen Med Orders - Current: Current Medications Acetaminophen (Tylenol) 650 mg PO Q4H PRN PRN Reason: mild pain or fever Benzocaine/Menthol (Dermoplast Pain Relief [place]) 0 gm TOP ASDIRECTED PRN PRN Reason: Perineal Comfort Measure Last Admin: 05/19/20 16:45 Dose: 1 applic Documented by: Docusate Sodium (Colace) 100 mg PO BID PRN PRN Reason: Constipation Ibuprofen (Motrin) 600 mg PO Q4H PRN PRN Reason: Mild pain or fever Last Admin: 05/20/20 08:31 Dose: 600 mg Documented by: Gladys Dunbar (Gilbert) 1 pad TOP ASDIRECTED PRN PRN Reason: Perineal Comfort Measure Last Admin: 05/19/20 16:45 Dose: 1 applic Documented by: Discontinued Medications Oxytocin/Lactated Ringer's (Pitocin In Lr 10 Units/1,000 Ml) 10 unit in 1,000 mls @ 500 mls/hr IV .CONTINUOUS DANIEL Last Infusion: 05/19/20 17:56 Dose: 250 mls/hr Documented by: Lactated Ringer's (Ringers, Lactated) 1,000 mls @ 100 mls/hr IV ASDIRECTED DANIEL Oxytocin/Lactated Ringer's (Pitocin In Lr 10 Units/1,000 Ml) Confirm Administered Dose 10 unit in 1,000 mls @ as directed IV .STK-MED ONE Stop: 05/19/20 17:53 Last Admin: 05/19/20 19:14 Dose: Not Given Documented by: Lidocaine HCl (Xylocaine 1%) 10 ml INJECT ONETIME ONE Stop: 05/19/20 14:43 Last Admin: 05/19/20 16:00 Dose: Not Given Documented by: Lidocaine HCl (Xylocaine 1%) Confirm Administered Dose 50 ml .ROUTE .STK-MED ONE Stop: 05/19/20 14:45 Last Admin: 05/19/20 14:51 Dose: Not Given Documented by: Nalbuphine HCl (Nubain) 10 mg IVPUSH Q2H PRN PRN Reason: Pain Ondansetron HCl (Zofran) 4 mg IVPUSH Q4H PRN PRN Reason: Nausea/Vomiting Sodium Chloride (Saline Flush) 10 ml FLUSH ASDIRECTED PRN PRN Reason: Keep Vein Open
== END 2020-05-20 16:10 | disposition home or self-care (01) | DRG 807 ==
LOC: JD.OB 11:57 → JD.OBCHECK 11:57 → JD.OB 12:04 → OBSVTOIN 15:35 → JD.OB 16:09
PROVIDERS: ADMIT Obstetrics & Gynecology; ATTEND Obstetrics & Gynecology
PROC: 10E0XZZ Delivery of Products of Conception, External Approach (ICD-10-PCS; principal; 2020-05-19)
PROC: 10907ZC Drainage of Amniotic Fluid, Therapeutic from Products of Conception, Via Natural or Artificial Opening (ICD-10-PCS; 2020-05-19)
PROC: 0HQ9XZZ Repair Perineum Skin, External Approach (ICD-10-PCS; 2020-05-19)
DX: O34.211 Maternal care for low transverse scar from previous cesarean delivery (principal); Z37.0 Single live birth; Z3A.39 39 weeks gestation of pregnancy; Z91.040 Latex allergy status; O70.0 First degree perineal laceration during delivery; Z11.59 Encounter for screening for other viral diseases
CPT/HCPCS: 36415; 59025; 59409; 85027; 86592; 86850; 86900; 86901; A9270-GY; J2590; U0002

== ENCOUNTER 2022-01-01 04:50 | Observation (INO) | payer OTHER ==
[2022-01-01] MEDS ORDERED: Ondansetron 4 MG/2 ML SDV IVPUSH PRN (06:07)
[2022-01-01] MEDS ORDERED: Nalbuphine 10 MG/1 ML Vial IVPUSH PRN (06:07)
[2022-01-01] MEDS ORDERED: Sodium Chloride 0.9% 10 ML Syringe FLUSH PRN (06:07)
[2022-01-01] MEDS ORDERED: Oxytocin/Lactated Ringers 10 UNIT/1,000 ML BAG IV SCH ×2 (06:15)
[2022-01-01] MEDS ORDERED: Lactated Ringers 1,000 ML IV SCH (06:15)
[2022-01-01] MEDS ORDERED: Sodium Chloride 0.9% 10 ML Syringe FLUSH SCH (09:00)
[2022-01-01] MEDS ORDERED: Acetaminophen 325 MG Tab PO PRN (13:11)
[2022-01-01] MEDS ORDERED: Docusate Sodium 100 MG Cap PO PRN (13:11)
[2022-01-01] MEDS ORDERED: Witch Hazel Medicated Pads 40/Jar TOP PRN (13:11)
[2022-01-01] MEDS ORDERED: Benzocaine/Menthol 20%-0.5% Spray 78 GM Cannister TOP PRN (13:11)
[2022-01-01] MEDS: Ibuprofen 600 MG Tab PO PRN (17:05)
[2022-01-02] MEDS: Ibuprofen 600 MG Tab PO PRN (01:22)
== END 2022-01-02 13:40 | disposition home or self-care (01) ==
LOC: JD.OBCHECK 04:50 → JD.OB 04:58 → JD.OBCHECK 06:16 → JD.OB 17:09
PROVIDERS: ADMIT Obstetrics & Gynecology; ATTEND Obstetrics & Gynecology
DX: O42.02 Full-term premature rupture of membranes, onset of labor within 24 hours of rupture (principal); O34.219 Maternal care for unspecified type scar from previous cesarean delivery; O99.891 Other specified diseases and conditions complicating pregnancy; H54.7 Unspecified visual loss; Z91.040 Latex allergy status; Z96.22 Myringotomy tube(s) status; Z3A.37 37 weeks gestation of pregnancy; Z01.812 Encounter for preprocedural laboratory examination; Z20.822 Contact with and (suspected) exposure to COVID-19
CPT/HCPCS: 36415; 59025; 59409; 84112; 85025; 86592; 86850; 86900; 86901; 87635; A9270; J2405; U0002

== ENCOUNTER 2024-01-21 02:25 | Inpatient (IN) | payer BC, OTHER ==
[2024-01-21] MEDS: Lactated Ringers 1,000 ML IV ONE (02:38)
[2024-01-21] MEDS: Metoclopramide 10 MG/2 ML SDV IVPUSH ONE (02:57)
[2024-01-21] MEDS: Azithromycin 500 MG in Sodium Chloride 0.9% 250 ML IV ONE (02:57)
[2024-01-21] MEDS: Citric Acid/Sodium Citrate Solution 30 ML Cup PO ONE (02:57)
[2024-01-21] MEDS ORDERED: Lactated Ringers 1,000 ML ONE (04:26)
[2024-01-21] MEDS ORDERED: Ketorolac 30 MG/ML SDV ONE (04:26)
[2024-01-21] MEDS ORDERED: ceFAZolin 2 GM Vial ONE (04:26)
[2024-01-21] MEDS ORDERED: Oxytocin 10 Units/1 ML SDV ONE (04:26)
[2024-01-21] MEDS ORDERED: ePHEDrine 50 MG/ML SDV ONE (04:26)
[2024-01-21] MEDS ORDERED: Ondansetron 4 MG/2 ML SDV ONE (04:26)
[2024-01-21] MEDS: Dextrose 5%-Lactated Ringers 1,000 ML IV SCH (05:30)
[2024-01-21] MEDS ORDERED: Sodium Chloride 0.9% 10 ML Syringe FLUSH PRN ×2 (06:45→07:03)
[2024-01-21 06:47] LABS: BICARBONATE,VENOUS UMBILICAL 16.7 (19-24); PCO2 UMBILICAL ARTERIAL 100.7 (42-58); PCO2 UMBILICAL VENOUS 78.6 (32.8-38.6); PH,UMBILICAL ARTERIAL 6.86 (7.22-7.32); PH,UMBILICAL VENOUS 6.96 (7.28-7.40)
[2024-01-21] MEDS ORDERED: diphenhydrAMINE 50 MG/ML SDV IVPUSH PRN (07:03)
[2024-01-21] MEDS ORDERED: ePHEDrine 50 MG/ML SDV IVPUSH PRN (07:03)
[2024-01-21] MEDS ORDERED: Docusate Sodium 100 MG Cap PO PRN (07:03)
[2024-01-21] MEDS ORDERED: Acetaminophen/oxyCODONE 325-5 MG Tab PO PRN ×2 (07:03)
[2024-01-21 08:28] LABS: PTT,PARTIAL THROMBOPLSTIN TIME 20.9 SECONDS (21.7-31.4)
[2024-01-21 08:31] LABS: BASOPHILS PERCENT AUTO 0.4 % (0.0-1.0); EOSINOPHILS ABSOLUTE AUTO 0.1 K/mm3 (0.0-0.4); EOSINOPHILS PERCENT AUTO 1.3 % (0.0-6.0); HEMATOCRIT 31.4 % (37.0-47.0); HEMOGLOBIN 10.6 gm/dl (12.0-16.0); IMMATURE GRAN ABSOLUTE AUTO 0.02 K/mm3 (0.00-0.05); IMMATURE GRAN PERCENT AUTO 0.2 % (0.0-0.4); LYMPHOCYTES ABSOLUTE AUTO 3.1 K/mm3 (1.0-4.8); LYMPHOCYTES PERCENT AUTO 36.7 % (24.0-44.0); MEAN CORPUSCULAR HEMOGLOBIN 30.4 pg (28.0-32.0); MEAN CORPUSCULAR HGB CONC 33.8 g/dl (32.0-36.0); MONOCYTES ABSOLUTE AUTO 0.6 K/mm3 (0.0-0.8); MONOCYTES PERCENT AUTO 7.3 % (0.0-8.0); NEUTROPHILS ABSOLUTE AUTO 4.6 K/mm3 (1.8-7.7); NEUTROPHILS PERCENT AUTO 54.1 % (41.0-71.0); PLATELET COUNT,PLT 333 K/mm3 (150-400); RED BLOOD CELL COUNT 3.49 M/mm3 (4.10-5.30); WHITE BLOOD CELL COUNT,WBC 8.47 K/mm3 (3.9-11.3)
[2024-01-21 08:42] LABS: A/G RATIO 0.8 (1-2); ALBUMIN 2.7 g/dl (3.4-5.0); ANION GAP 16.2 (5-15); BILIRUBIN TOTAL 0.3 mg/dL (0.2-1.0); BUN/CREATININE RATIO 15.7 (14-18); CALCIUM 8.7 mg/dL (8.5-10.1); CREATININE 0.7 mg/dL (0.55-1.02); EST CRCL DRUG DOSING (CG) 116.39 mL/min; POTASSIUM,K 3.2 mEq/L (3.5-5.1); PROTEIN TOTAL,TP 6.3 g/dl (6.4-8.2)
[2024-01-21] MEDS: Ketorolac 30 MG/ML SDV IVPUSH SCH (10:08)
[2024-01-21 16:45] LABS: HEMATOCRIT 23.7 % (37.0-47.0); HEMOGLOBIN 8.1 gm/dl (12.0-16.0); MEAN CORPUSCULAR HEMOGLOBIN 30.8 pg (28.0-32.0); MEAN CORPUSCULAR HGB CONC 34.2 g/dl (32.0-36.0); MEAN CORPUSCULAR VOLUME 90.1 fl (83.0-99.0); MEAN PLATELET VOLUME 8.8 fl (9.4-12.3); PLATELET COUNT,PLT 224 K/mm3 (150-400); RED BLOOD CELL COUNT 2.63 M/mm3 (4.10-5.30); WHITE BLOOD CELL COUNT,WBC 9.23 K/mm3 (3.9-11.3)
[2024-01-21] MEDS: Metoclopramide 10 MG/2 ML SDV ONE (21:26)
[2024-01-21] MEDS: Sodium Chloride 0.9% 250 ML ONE (21:26)
[2024-01-21] MEDS: Citric Acid/Sodium Citrate Solution 30 ML Cup ONE (21:26)
[2024-01-21] MEDS: Azithromycin 500 MG Vial ONE (21:26)
[2024-01-21] MEDS: Sodium Chloride 0.9% 10 ML Syringe FLUSH SCH (21:27)
[2024-01-21] MEDS: Dextrose 5%-Lactated Ringers 1,000 ML ONE (21:27)
[2024-01-22] MEDS: Ibuprofen 600 MG Tab PO PRN (05:41)
== END 2024-01-22 08:20 | disposition home or self-care (01) | DRG 540 ==
LOC: JD.OB 02:25
PROVIDERS: ADMIT Obstetrics & Gynecology; ATTEND Obstetrics & Gynecology
PROC: 10D00Z1 Extraction of Products of Conception, Low, Open Approach (ICD-10-PCS; principal; 2024-01-21 03:30)
DX: O45.93 Premature separation of placenta, unspecified, third trimester (principal); O34.211 Maternal care for low transverse scar from previous cesarean delivery; Z3A.32 32 weeks gestation of pregnancy; Z37.0 Single live birth; Z91.040 Latex allergy status; Z86.16 Personal history of COVID-19; Z98.890 Other specified postprocedural states
CPT/HCPCS: 00524; 01961; 36415; 36600; 80053; 82803; 85025; 85027; 85384; 85730; 86850; 86900; 86901; A9270-GY; J0456; J0690; J1885; J2405; J2590; J2765; J3490; J7050; J7120; J7121